=== PATIENT | male | born 1955 | race Caucasian/White ===

== ENCOUNTER → 2016-09-18 11:28 | Outpatient (CLI) | payer MEDICAID ==
[2014-11-28 13:24] VITALS: BMI 29.2
[~2016-09-18 11:28] MED LIST: ADVAIR HFA [SP]12 GM INH; ATIVAN0.5 MG PO; BACTRIM DS TABL1 TAB PO; BAYER CHEWABLE81 MG PO; BUPROPION HCL100 M1 PO; CATAPRES0.1 MG PO; COLACE100 MG PO; COUMADIN10 MG PO; HEALTHYLAX17 GM PO; HYDRALAZINE HCL25 MG PO; HYDRALAZINE HCL50 MG PO; HYDROCHLOROTH12.5 M1 PO; HYDROCODON-ACE1 EAC7 PO; HYDROCODONE-APA1 TAB PO; K-TAB10 MEQ PO; KEFLEX500 MG PO; LASIX40 MG PO; LEVAQUIN500 MG; LEVAQUIN500 MG PO; METOPROLOL TAR100 M1 PO; METOPROLOL TART50 MG PO; MILK OF MAGNESI30 ML GT; NORVASC10 MG PO; NYSTATIN1 PWD TOPICAL; PRAVACHOL40 MG PO; PRINIVIL20 MG PO; PROAIR HFA8.5 GM INH; PROTONIX40 MG PO; PROVENTIL HFA6.7 GM INH
== END | disposition home or self-care (01) ==
LOC: D.CT 11:28
DX: I71.4 Abdominal aortic aneurysm, without rupture (principal)

== ENCOUNTER 2017-01-13 22:16 | Inpatient (IN) | payer MEDICAID ==
[~2017-01-13] VITALS: Ht 193 cm; Wt 116.8 kg
[~2017-01-13 22:16] MED LIST changes: -BUPROPION HCL100 M1 PO; +BUPROPION XL150 MG PO
[2017-01-13 23:18] LABS: BASOPHILS 0.1 % (0-2); EOSINOPHILS 0.4 % (0-7); HEMATOCRIT 52.1 % (42.0-54.0); HEMOGLOBIN 16.3 g/dL (13.5-17.5); IMMATURE GRANULOCYTES 0.3 % (0-5); LYMPHOCYTES 4.3 % (15-50); MCH 29.3 pg (26.0-34.0); MCHC 31.3 g/dL (31.0-37.0); MCV 93.5 fL (80.0-100.0); MEAN PLATELET VOLUME 10.2 fL (7.4-10.4); MONOCYTES 4.7 % (2-11); NEUTROPHILS 90.2 % (40-80); PLATELET COUNT 105 10x3/uL (130-400); RBC 5.57 10x6/uL (4.20-6.10); RDW 12.3 % (11.5-14.5); WBC 11.3 10x3/uL (4.8-10.8)
[2017-01-13 23:28] LABS: ALKALINE PHOSPHATASE 79 U/L (46-116); ALT (SGPT) 19 U/L (10-68); CALC OSMOLALITY 284 mosm/kg (275-300); CALCIUM 8.7 mg/dL (8.5-10.1); CARBON DIOXIDE 37.2 mmol/L (21.0-32.0); CHLORIDE - SERUM 99 mmol/L (98-107); CREATININE - SERUM 1.3 mg/dL (0.6-1.3); GLUCOSE 145 mg/dL (74-106); POTASSIUM - SERUM 3.5 mmol/L (3.5-5.1); PROTEIN - SERUM 7.6 g/dL (6.4-8.2); SODIUM 141 mmol/L (136-145); UREA NITROGEN 14 mg/dL (7-18); eGFR NON AFRICAN AMERICAN 60 mL/min (90-120)
[2017-01-13 23:35] LABS: CREATINE KINASE 70 UL (21-232); PRO BNP 404 pg/mL (0-125); TROPONIN-I < 0.017 ng/mL (0.000-0.060)
[2017-01-14] MEDS ORDERED: PROTONIX40 MG PO (02:01)
[2017-01-14] MEDS ORDERED: HYDROCHLOROTH12.5 M1 PO (02:02)
[2017-01-14] MEDS ORDERED: METOPROLOL TAR100 M1 PO (02:03)
[2017-01-14] MEDS ORDERED: CATAPRES0.1 MG PO (02:03)
[2017-01-14] MEDS ORDERED: PRINIVIL20 MG PO (02:04)
[2017-01-14] MEDS ORDERED: NORVASC10 MG PO (02:05)
[2017-01-14] MEDS ORDERED: ELIQUIS2.5 MG PO (02:05)
[2017-01-14 02:23] VITALS: Ht 193 cm; Wt 116.8 kg
[2017-01-14 04:00] VITALS: BP 171/90
[2017-01-14 08:14] VITALS: BP 166/75
[2017-01-14 12:41] VITALS: BP 142/72
[2017-01-14 15:20] VITALS: BP 136/74
[2017-01-14 20:00] VITALS: BP 123/68
[2017-01-15 04:00] VITALS: BP 134/69
[2017-01-15 04:39] LABS: BASOPHILS 0 % (0-2); EOSINOPHILS 0 % (0-7); HEMATOCRIT 46.6 % (42.0-54.0); HEMOGLOBIN 14.7 g/dL (13.5-17.5); IMMATURE GRANULOCYTES 0.2 % (0-5); LYMPHOCYTES 6.1 % (15-50); MCH 28.7 pg (26.0-34.0); MCHC 31.5 g/dL (31.0-37.0); MEAN PLATELET VOLUME 10.2 fL (7.4-10.4); MONOCYTES 3.2 % (2-11); NEUTROPHILS 90.5 % (40-80); PLATELET COUNT 125 10x3/uL (130-400); RBC 5.13 10x6/uL (4.20-6.10); RDW 12.2 % (11.5-14.5); WBC 12.8 10x3/uL (4.8-10.8)
[2017-01-15 04:46] LABS: MCV 90.8 fL (80.0-100.0)
[2017-01-15 05:00] LABS: ALBUMIN 3.1 g/dL (3.4-5.0); ANION GAP 7.2 mmol/L (8-16); BILIRUBIN - TOTAL 0.86 mg/dL (0.2-1.3); CALCIUM 8.9 mg/dL (8.5-10.1); CARBON DIOXIDE 34.3 mmol/L (21.0-32.0); CREATININE - SERUM 1.4 mg/dL (0.6-1.3); POTASSIUM - SERUM 3.5 mmol/L (3.5-5.1); PROTEIN - SERUM 6.6 g/dL (6.4-8.2)
[2017-01-15 09:51] VITALS: BP 147/64
[2017-01-15 12:59] VITALS: BP 150/81
[2017-01-15 17:02] VITALS: BP 152/82
[2017-01-15 19:00] VITALS: BP 159/71
[2017-01-16 04:00] VITALS: BP 149/71
[2017-01-16 05:00] LABS: BASOPHILS 0 % (0-2); EOSINOPHILS 0 % (0-7); HEMATOCRIT 50.6 % (42.0-54.0); IMMATURE GRANULOCYTES 0.2 % (0-5); LYMPHOCYTES 5.6 % (15-50); MCH 28.9 pg (26.0-34.0); MCHC 31.6 g/dL (31.0-37.0); MCV 91.3 fL (80.0-100.0); MEAN PLATELET VOLUME 10.2 fL (7.4-10.4); MONOCYTES 3.1 % (2-11); NEUTROPHILS 91.1 % (40-80); PLATELET COUNT 140 10x3/uL (130-400); RBC 5.54 10x6/uL (4.20-6.10); RDW 12.4 % (11.5-14.5); WBC 12.7 10x3/uL (4.8-10.8)
[2017-01-16 05:11] LABS: ANION GAP 7.4 mmol/L (8-16); CALCIUM 8.7 mg/dL (8.5-10.1); CARBON DIOXIDE 37.2 mmol/L (21.0-32.0); CREATININE - SERUM 1.1 mg/dL (0.6-1.3); POTASSIUM - SERUM 3.6 mmol/L (3.5-5.1)
[2017-01-16 08:22] LABS: IMMUNOGLOBULIN E 11 IU/mL (0-100)
[2017-01-16 08:32] VITALS: BP 150/76
[2017-01-16 12:30] VITALS: BP 137/74
[2017-01-16 16:02] VITALS: BP 145/75
[2017-01-17] VITALS: BP 151/70
[2017-01-17 04:00] VITALS: BP 172/78
[2017-01-17 08:23] VITALS: BP 147/85
[2017-01-17 13:03] VITALS: BP 133/66
[2017-01-17 17:18] VITALS: BP 148/79
[2017-01-17 20:00] VITALS: BP 154/76
[2017-01-18] VITALS: BP 158/80
[2017-01-18 04:00] VITALS: BP 123/96
[2017-01-18 05:11] LABS: BASOPHILS 0 % (0-2); EOSINOPHILS 0 % (0-7); HEMATOCRIT 50.1 % (42.0-54.0); HEMOGLOBIN 15.8 g/dL (13.5-17.5); IMMATURE GRANULOCYTES 0.3 % (0-5); LYMPHOCYTES 17.4 % (15-50); MCH 28.6 pg (26.0-34.0); MCHC 31.5 g/dL (31.0-37.0); MCV 90.8 fL (80.0-100.0); MONOCYTES 6.7 % (2-11); NEUTROPHILS 75.6 % (40-80); PLATELET COUNT 128 10x3/uL (130-400); RBC 5.52 10x6/uL (4.20-6.10); RDW 12.4 % (11.5-14.5); WBC 9.4 10x3/uL (4.8-10.8)
[2017-01-18 05:23] LABS: ANION GAP 6.7 mmol/L (8-16); CALCIUM 8.6 mg/dL (8.5-10.1); CARBON DIOXIDE 36.2 mmol/L (21.0-32.0); CREATININE - SERUM 1.2 mg/dL (0.6-1.3); MAGNESIUM - SERUM 2.4 mg/dL (1.8-2.4); PHOSPHOROUS 4.2 mg/dL (2.5-4.9); POTASSIUM - SERUM 3.9 mmol/L (3.5-5.1)
[2017-01-18 08:31] VITALS: BP 138/81
[2017-01-18 12:45] VITALS: BP 154/79
[2017-01-18 16:37] VITALS: BP 123/75
[2017-01-18 20:00] VITALS: BP 150/77
[2017-01-19 04:00] VITALS: BP 153/83
[2017-01-19 04:32] LABS: BASOPHILS 0 % (0-2); EOSINOPHILS 0 % (0-7); HEMATOCRIT 48.7 % (42.0-54.0); HEMOGLOBIN 15.4 g/dL (13.5-17.5); IMMATURE GRANULOCYTES 0.4 % (0-5); LYMPHOCYTES 20.5 % (15-50); MCH 28.7 pg (26.0-34.0); MCHC 31.6 g/dL (31.0-37.0); MCV 90.7 fL (80.0-100.0); MEAN PLATELET VOLUME 10.1 fL (7.4-10.4); MONOCYTES 7.7 % (2-11); NEUTROPHILS 71.4 % (40-80); PLATELET COUNT 123 10x3/uL (130-400); RBC 5.37 10x6/uL (4.20-6.10); RDW 12.3 % (11.5-14.5); WBC 7.8 10x3/uL (4.8-10.8)
[2017-01-19 04:46] LABS: ANION GAP 6.4 mmol/L (8-16); CALCIUM 8.2 mg/dL (8.5-10.1); CARBON DIOXIDE 37.4 mmol/L (21.0-32.0); CREATININE - SERUM 1.2 mg/dL (0.6-1.3); POTASSIUM - SERUM 3.8 mmol/L (3.5-5.1)
[2017-01-19] MEDS ORDERED: Levaquin PO (07:51)
[2017-01-19] MEDS ORDERED: NICODERM C1 PATCH .1 TRANSDERM (07:52)
[2017-01-19] MEDS ORDERED: BROVANA15 MCG/2 M INH (07:52)
[2017-01-19] MEDS ORDERED: PREDNISONE20 MG PO (07:54)
[2017-01-19] MEDS ORDERED: SINGULAIR10 MG PO (07:54)
[2017-01-19] MEDS ORDERED: PULMICORT0.5 MG/21 UPD (07:55)
[2017-01-19] MEDS ORDERED: BENZONATATE200 MG PO (07:55)
[2017-01-19 08:39] VITALS: BP 162/88
--- NOTE | 2017-01-20 13:11 | DS ---
PATIENT:MAYELA SOLITARIO JR :57 MEDICAL RECORD: [id number] DISCHARGE SUMMARY ADMISSION DATE: 01/14/17 DISCHARGE DATE: 01/19/17 DATE OF ADMISSION: 01/14/2017 DATE OF DISCHARGE: 01/19/2017 ADMISSION DIAGNOSES: Acute exacerbation of chronic obstructive pulmonary disease, chronic obstructive pulmonary disease, shortness of breath, nicotine dependence, and hypertension. DISCHARGE DIAGNOSES: Acute exacerbation of chronic obstructive pulmonary disease, chronic obstructive pulmonary disease, shortness of breath, nicotine dependence, and hypertension. CONSULTS: Dr. Elizabeth, pulmonology. HOSPITAL COURSE: The patient was admitted to the Emergency Room with worsening shortness of breath, wheezing, supportive O2 was administered, Joshua. Pulmonology consulted. IV corticosteroids, placed on BiPAP. The patient was found to be hypercapnic, significant improvement. The patient is discharged to home in significantly improved condition, home BiPAP has been arranged. blood bank manager to facilitate discharge and sure home medications needs her in place. We will follow up with Dr. Elizabeth, Dr. Desir. The patient is anxious to go home. Counseled on smoking cessation. VITAL SIGNS ON DISCHARGE: Temperature 98.2, blood pressure 153/83, heart rate 55, O2 sats 93% on 3 liters via nasal cannula. The patient has oxygen at home. DISCHARGE MEDICATIONS: Per med rec. Please see chart for further details. Agree with assessments from pulmonology. TRANSINT:[id number] Voice Confirmation ID: [id number] DOCUMENT ID: [id number] CHINEDU BENAVIDES DO at 1311 CC: [id number] DICTATION DATE: 01/19/17 08 BILLET SHEARER: 01/20/17 0455 DIS IN 01/19/17 [facility] [address] [id number]
== END 2017-01-19 12:19 | disposition home health service (06) | DRG 189 ==
LOC: D.ER 22:16 → D.MS 01-14 00:25
PROVIDERS: Emergency Medicine; Family Medicine; Internal Medicine Pulmonary Disease; ADMIT Family Medicine
DX: J96.22 Acute and chronic respiratory failure with hypercapnia (principal); J44.1 Chronic obstructive pulmonary disease with (acute) exacerbation; J45.901 Unspecified asthma with (acute) exacerbation; J20.9 Acute bronchitis, unspecified; J96.21 Acute and chronic respiratory failure with hypoxia; Z72.0 Tobacco use; E78.5 Hyperlipidemia, unspecified; I10 Essential (primary) hypertension; K75.9 Inflammatory liver disease, unspecified; G47.33 Obstructive sleep apnea (adult) (pediatric); G25.1 Drug-induced tremor

== ENCOUNTER → 2017-05-01 14:20 | Outpatient (CLI) | payer MEDICAID ==
[2017-01-14 02:23] VITALS: BMI 31.3
[~2017-05-01 14:20] MED LIST changes: +BENZONATATE200 MG PO; +BROVANA15 MCG/2 M INH; +ELIQUIS2.5 MG PO; +Levaquin PO; +NICODERM C1 PATCH .1 TRANSDERM; +PREDNISONE20 MG PO; +PULMICORT0.5 MG/21 UPD; +SINGULAIR10 MG PO
== END | disposition home or self-care (01) ==
LOC: D.CT 14:20
DX: H53.2 Diplopia (principal)

== ENCOUNTER → 2017-09-04 10:56 | Outpatient (CLI) | payer MEDICAID ==
[2017-01-14 02:23] VITALS: BMI 31.3
== END | disposition home or self-care (01) ==
LOC: D.RT 08-06 08:00
DX: J44.9 Chronic obstructive pulmonary disease, unspecified (principal)

== ENCOUNTER 2018-09-12 09:59 | Outpatient (CLI) | payer MEDICAID ==
[~2018-09-12] VITALS: Ht 193 cm; Wt 112.7 kg
--- NOTE | ~2018-09-12 | HEMODYNAMI ---
PATIENT:MAYELA SOLITARIO JR MEDICAL RECORD: [id number] : 57 LOCATION[facility] ADMISSION DATE: 09/12/18 Generatedon:09/12/201813:51 Patient name: MAYELA SOLITARIO Patient #: [id number] SSN: : Date of study: 09/12/2018 Page: Of Hemodynamic Procedure Report Patient Data Patient Demographics Procedure consent was obtained First Name: MAYELA Gender: Male Last Name: KASSI Suffix: [facility] Initial: CORRIE : 1955 Patient #: [id number] Age: 63 year(s) Race: Unknown Additional ID: [id number] Contact details Address: [address] [place] [address] rd State: [place] City: [place] Zip code: [address] Admission Admission Data Admission Date: 09/12/2018 Admission Time: 9:59 Room #: [facility] Procedure Procedure Types Cath Procedure Diagnostic Procedure KAIYT Procedure Description Procedure Date Procedure Date: 09/12/2018 Procedure Start Time: 13:37 Procedure End Time: 13:49 Procedure Staff Name Function Kaushik Antony MD Performing Physician Austin Horvath Citrus Picker Murphy Gonsales CRNA Additional personnel Rohit Johnson RT Monitor Taj Bryan RN Nurse Procedure Data Cath Procedure Fluoroscopy Diagnostic fluoroscopy Total fluoroscopy Time: 0 time: 0 min min Diagnostic fluoroscopy Total fluoroscopy dose: 0 dose: 0 mGy mGy Contrast Material Contrast Material Type Amount (ml) Isovue 300 0 Estimated blood loss: 0 ml Procedure Complications No complications Procedure Medications Medication Administration Route Dosage Oxygen etCO2 Nasal cannula 2 l/min Hurricaine [place] P.O. Sprays Hemodynamics Rest Pre Cath Intra NCS Post Cath Vital Signs Time Heart Resp SPO2 etCO2 NIBP (mmHg) Rhythm Pain Sedation Rate (ipm) (%) (mmHg) Status Level (bpm) 13:29:11 66 9 98 0 202/98(161) NSR 0 (11) 10(A) , No pain 13:31:47 59 18 96 0 185/94(151) NSR 0 (11) 10(A) , No pain 13:34:02 61 17 99 0 185/110(156) NSR 0 (11) 10(A) , No pain 13:38:45 58 18 98 0 145/86(121) NSR 0 (11) 10(A) , No pain 13:43:07 54 25 94 0 141/74(115) NSR 0 (11) 10(A) , No pain 13:47:29 57 25 94 0 131/72(106) NSR 0 (11) 10(A) , No pain Medications Time Medication Route Dose Verified Delivered Reason Notes Effectiv eness by by 13:21:20 Oxygen etCO2 2 Kaushik Vang Per Nasal l/min St Italo Bryan RN physician cannula MD 13:22:38 Hurricaine P.O. Sprays Kaushik Vang Per [place] St Italo Bryan RN physician MD Procedure Log Time Note 12:50:43 Taj Bryan RN sent for patient. Start room use. 13:08:51 Time tracking: Regular hours (M-F 7:00 - 5:00) 13:08:56 Plan of Care:Hemodynamics will remain stable., Cardiac rhythm will remain stable., Comfort level will be maintained., Respiratory function will remain adequate., Patient/ family verbilizes understanding of procedure., Procedure tolerated without complication., Recovers from procedure without complications.. 13:09:01 Austin Horvath High Reach Operator present for KAITY. 13:09:08 Murphy Gonsales CRNA present and monitoring patient for TIVA. 13:13:50 Patient arrived from Pre/Post Procedure Room to CCL 3. Patient remains on bed/stretcher for procedure. 13:13:51 Warm blankets applied, and petty hugger turned on for patient comfort. 13:13:51 Correct patient and procedure confirmed by team. 13:13:53 Signed procedure consent form obtained from patient. 13:13:53 ECG and BP/O2 sat monitors applied to patient. 13:16:56 Vital chart was started 13:17:04 Rhythm: sinus rhythm 13:17:06 Full Disclosure recording started 13:17:18 H&P Date Dictated: 09/12/2018 New H&P dictated by physician.. 13:17:19 Pre-procedure instructions explained to patient. 13:17:19 Pre-op teaching completed and patient verbalized understanding. 13:17:22 Family in waiting room. 13:17:23 Patient NPO since Midnight. 13:17:24 Is the patient allergic to Iodine/contrast media? No. 13:17:25 Is patient on blood thinner?Yes 13:17:28 ACC The patient was administered the following blood thiners within the last 24 hours: Eliquis 13:17:30 Patient diabetic? No. 13:17:32 Previous problem with sedation/anesthesia? No ? 13:17:33 Snore? Yes 13:17:34 Sleep apnea? No 13:17:35 Deviated septum? No 13:17:35 Opens mouth fully? Yes 13:17:36 Sticks out tongue? Yes 13:17:41 Airway obstruction? Yes COPD 13:17:58 Dentures? No ? 13:18:08 Patient pain scale 0/10 ?. 13:18:46 IV patent on arrival in left forearm with 0.9% NaCl at [facility]. 13:18:48 Lab results completed and on chart. 13:18:54 Alarms reviewed by Christina Lerma 13:19:35 Pt prepped for KAITY. 13:21:20 Oxygen 2 l/min etCO2 Nasal cannula was administered by Taj Bryan RN; Per physician; 13:22:38 Hurricaine [place] Sprays P.O. was administered by Taj Bryan RN; Per physician; 13:36:40 --------ALL STOP TIME OUT------ 13:36:40 Final Timeout: patient, procedure, and site verified with staff and physician. All members of the team are in agreement. 13:36:46 Physical assessment completed. ASA score P 3 - A patient with severe systemic disease as per Kaushik Antony MD. 13:36:50 Sedation plan: TIVA Medication:Propofol 13:37:06 Procedure started. 13:37:08 KAITY started. 13:44:55 KAITY completed. 13:45:12 Procedure ended.(Physican Out) 13:45:57 Fluoroscopy time 00.00 minutes. 13:45:59 Fluoroscopy dose: 0 mGy 13:45:59 Flurop Dose total: 0 13:46:02 Contrast amount:Isovue 300 0ml. 13:46:15 Post Procedure Pulses reassessed and unchanged 13:46:20 Post-procedure physical assessment completed. ASA score P 3 - A patient with severe systemic disease as per Kaushik Antony MD. 13:46:22 Post procedure rhythm: unchanged. 13:46:29 Estimated blood loss: 0 ml 13:47:01 Post procedure instruction explained to patient.Patient verbalizes understanding. 13:47:01 Patient needs reinforcement of post procedure teaching. 13:47:09 Procedure Complication : No complications 13:48:46 Procedure and supply charges have been captured, reviewed, submitted and are correct. 13:49:09 Vital chart was stopped 13:49:10 See physician's report for complete and final results. 13:49:13 Report given to Pre/Post Procedure Room. 13:49:18 Patient transfered to Pre/Post Procedure Room with Stretcher. 13:49:20 Procedure ended. 13:49:20 Full Disclosure recording stopped 13:49:23 End room use (Document Last) Signature Audit [place] Stage Time Signature Unsigned Intra-Procedure 09/12/2018 Rohit Johnson 1:50:56 PM RT(R) Signatures Monitor : Rohit Johnson RT Signature : Date : Time : [place] [id number] [facility] [place] [address]
[~2018-09-12 09:59] MED LIST changes: +CEFUROXIME500 MG PO
[2018-09-12 12:40] VITALS: BP 185/81; Ht 193 cm; Wt 112.7 kg
[2018-09-12 12:50] LABS: BASOPHILS 0.3 % (0-2); EOSINOPHILS 1.7 % (0-7); HEMATOCRIT 44.3 % (42.0-54.0); HEMOGLOBIN 14.7 g/dL (13.5-17.5); IMMATURE GRANULOCYTES 0.3 % (0-5); LYMPHOCYTES 23.8 % (15-50); MCH 27.9 pg (26.0-34.0); MCHC 33.2 g/dL (31.0-37.0); MCV 84.2 fL (80.0-100.0); MEAN PLATELET VOLUME 9.1 fL (7.4-10.4); MONOCYTES 6.2 % (2-11); NEUTROPHILS 67.7 % (40-80); RBC 5.26 10x6/uL (4.20-6.10); RDW 12.7 % (11.5-14.5); WBC 7.1 10x3/uL (4.8-10.8)
[2018-09-12] MEDS ORDERED: FUROSEMIDE40 MG PO (12:53)
[2018-09-12] MEDS ORDERED: ROBAXIN500 MG PO (12:55)
[2018-09-12] MEDS ORDERED: SINGULAIR10 MG PO (12:56)
[2018-09-12] MEDS ORDERED: RESTORIL15 MG PO (12:57)
[2018-09-12 13:00] LABS: PLATELET COUNT 162 10x3/uL (130-400)
[2018-09-12 13:13] LABS: ANION GAP 13.9 mmol/L (8-16); CALCIUM 9.7 mg/dL (8.5-10.1); CREATININE - SERUM 1.3 mg/dL (0.6-1.3); POTASSIUM - SERUM 3.9 mmol/L (3.5-5.1)
[2018-09-12 13:25] LABS: INR 1.09 (0.85-1.17); PROTIME 13.6 SECONDS (11.6-15.0)
--- NOTE | 2018-09-12 14:06 | NUR ---
RECIEVED TO ROOM VIA STRETCHER FROM STATISTICAL PROGRAMMER ANALYST WITH HR 58 BP 145/81 PATIENT RESPONDS TO VERBAL WITH PAIN DENIED. DR VILLAREAL PRESENT AT BEDSIDE TALKING TO FAMILY
--- NOTE | 2018-09-12 14:50 | NUR ---
LEFT PIV D/C'D WITH CATHETER INTACT, BAND AID TO SITE. UP TO BEDSIDE TO GET DRESSED.
--- NOTE | 2018-09-12 15:00 | NUR ---
DISCHARGE INSTRUCTIONS GIVEN, VERBALIZED UNDERSTANDING.
--- NOTE | 2018-09-12 15:05 | NUR ---
TAKEN OUT VIA WHEELCHAIR BY CATH LIFT TEAM TECHNICIAN. LEFT FACILITY WITH FAMILY AND ALL PERSONAL BELONGINGS.
--- NOTE | 2018-09-16 15:26 | TEE ---
PATIENT:MAYELA SOLITARIO JR MEDICAL RECORD: [id number] LOCATION:[facility] AGE OF PATIENT: 63 ADMISSION DATE: 09/12/18 SEX: M REFERRING PHYSICIAN: INTERPRETING PHYSICIAN: EDITH VILLAREAL MD TRANSESOPHAGEAL ECHOCARDIOGRAM Date: 09/12/18 KAITY CHARGE Y INDICATIONS: ASSESS FOR ENDOCARDITIS PREMEDICATIONS: PATIENT'S RESPONSE PROCEDURE DOPPLER MEASUREMENTS: LVIT LA PA RA LVOT RVOT Asc. Ao AV Gradient Peak AV Mean AV Area MV Gradient Peak MV Mean MV Area INTERPRETATION: Doppler: 2-D: COLOR FLOW DOPPLER NORMAL SALINE STUDY: MISCELLANOUS: DIAGNOSIS: PLAN: Nuisance Wildlife Control Operator:3 Dr. Vazquez Is/It Project Manager: Bean ALONZO COMMENTS: DATE OF SERVICE: 09/12/2018 PROCEDURE: Transesophageal echocardiogram. DESCRIPTION OF PROCEDURE: After general sedation via TIVA via anesthesia, transesophageal Omniplane probe was placed at the distal esophagus and proximal stomach without difficulty. FINDINGS: LVH. LV internal dimension is normal. Wall motion is normal. EF is TRANSESOPHAGEAL ECHOCARDIOGRAM REPORT [id number] MAYELA SOLITARIO FRA greater than 55%. Aortic valve is highly sclerotic; however, good valve excursion, mild AI. Left atrium appears normal. Left atrial appendage is well visualized with good contractility. Mitral valve appears normal with no prolapse. Trivial MR. Right-sided chambers grossly normal. Trivial TR. IMPRESSION: Aortic sclerosis only, good valve excursion. No evidence of vegetation. TRANSINT:[id number] Voice Confirmation ID: [id number] DOCUMENT ID: [id number] at 1526 CC: [id number] DICTATION DATE: 09/12/18 1355 SALES REPRESENTATIVE [employer]ODUCTS: 09/12/18 2234 DEP CLI 09/12/[address] [address]
== END 2018-09-12 15:05 | disposition home or self-care (01) ==
LOC: D.ECHO 09:59 → D.CLR 09:59 → D.ECHO 10:00 → D.CLR 12:00 → D.ECHO 15:05
PROVIDERS: Internal Medicine Interventional Cardiology
DX: I38 Endocarditis, valve unspecified (principal)

== ENCOUNTER → 2018-09-26 09:50 | Outpatient (CLI) | payer MEDICAID ==
[2018-09-12 12:40] VITALS: BMI 30.2
[~2018-09-26 09:50] MED LIST changes: +FUROSEMIDE40 MG PO; +RESTORIL15 MG PO; +ROBAXIN500 MG PO
== END | disposition home or self-care (01) ==
LOC: D.CT 09:50
DX: I71.3 Abdominal aortic aneurysm, ruptured (principal)

== ENCOUNTER 2019-06-09 11:36 | Inpatient (IN) | payer MEDICAID ==
[~2019-06-09] VITALS: Ht 193 cm; Wt 113.3 kg
[2019-06-09] VITALS (9 sets, daily range): BP systolic 106–145; BP diastolic 68–103; BMI 31.9
--- NOTE | ~2019-06-09 | HEMODYNAMI ---
PATIENT:MAYELA SOLITARIO JR MEDICAL RECORD: [id number] : 57 [id number] ADMISSION DATE: 06/09/19 Generatedon:06/12/201910:35 Patient name: MAYELA SOLITARIO Patient #: [id number] SSN: : 1955 Date of study: 06/12/2019 Page: Of Hemodynamic Procedure Report Patient Data Patient Demographics Procedure consent was obtained First Name: MAYELA Gender: Male Last Name: KASSI Suffix: [facility] Initial: CORRIE : 1955 Patient #: [id number] Age: 64 year(s) Race: Unknown Additional ID: [id number] Contact details Address: [address] [place] [address] rd State: [place] City: [place] Zip code: [address] Admission Admission Data Admission Date: 06/09/2019 Admission Time: 15:34 Room #: [facility] Procedure Procedure Types Cath Procedure Diagnostic Procedure Cardioversion External Procedure Description Procedure Date Procedure Date: 06/12/2019 Procedure Start Time: 10:17 Procedure End Time: 10:31 Procedure Staff Name Function Kendall Castañeda MD Performing Physician Murphy Gonsales CRNA Additional personnel Luana Lua RN Nurse Rohit Johnson RT Monitor Pauline Scott RT Monitor Procedure Data Cath Procedure Estimated blood loss: 0 ml Procedure Complications No complications Procedure Medications Medication Administration Route Dosage 0.9% NaCl I.V. 100 ml/hr Oxygen etCO2 Nasal cannula 2 l/min Refer to Anesthesia Notes for Sedation Medications Hemodynamics Rest Heart Rate: 90 (bpm) Snapshots Pre Cath Intra NCS Post Cath Vital Signs Time Heart Resp SPO2 etCO2 NIBP (mmHg) Rhythm Pain Sedation Rate (ipm) (%) (mmHg) Status Level (bpm) 10:16:51 99 20 98 16.5 150/108(124) A-Fib 0 (11) 10(A) , No pain 10:21:01 83 15 98 25.6 151/103(112) A-Fib 0 (11) 5(A) , No pain 10:25:50 52 15 97 26.7 96/58(75) SB 0 (11) 5(A) , No pain 10:30:45 51 29 96 30.1 118/63(93) SB 0 (11) 10(A) , No pain Medications Time Medication Route Dose Verified Delivered Reason Notes Effective ness by by 10:16:17 0.9% NaCl I.V. 100 Kendall Luana used for ml/hr Garry Lua private duty aide 10:16:24 Oxygen etCO2 2 Kendall Luana used for Nasal l/min Garry Lua procedure cannula RN 10:16:32 Refer to Murphy Arrington for Anesthesia Dru Gonsales sedation Notes for JIMMIE WIRE SAWYER Sedation Medications Procedure Log Time Note 9:50:53 Rohit Johnson RT(R) sent for patient. Start room use. 10:10:03 Time tracking: Regular hours (M-F 7:00 - 5:00) 10:10:07 Plan of Care:Hemodynamics will remain stable., Cardiac rhythm will remain stable., Comfort level will be maintained., Respiratory function will remain adequate., Patient/ family verbilizes understanding of procedure., Procedure tolerated without complication., Recovers from procedure without complications.. 10:10:11 Patient arrived from PCU to CCL 3. Patient remains on bed/stretcher for procedure. 10:10:14 Signed procedure consent form obtained from patient. 10:10:15 Warm blankets applied, and petty hugger turned on for patient comfort. 10:10:15 Correct patient and procedure confirmed by team. 10:10:15 ECG and BP/O2 sat monitors applied to patient. 10:10:50 Quick Combo opened to sterile field. 10:15:08 Murphy Gonsales CRNA present and monitoring patient for TIVA. 10:15:50 Baseline sample Acquired. 10:15:50 Vital chart was started 10:15:58 Rhythm: atrial fibrillation 10:16:05 Full Disclosure recording started 10:16:17 0.9% NaCl 100 ml/hr I.V. was administered by Luana Lua RN; used for procedure; Verbal order read back and verified. 10:16:24 Oxygen 2 l/min etCO2 Nasal cannula was administered by Luana Lua RN; used for procedure; Verbal order read back and verified. 10:16:32 Refer to Anesthesia Notes for Sedation Medications was administered by Murphy Gonsales CRNA; for sedation; Verbal order read back and verified. 10:16:48 H&P Date Dictated: 06/09/2019 Within 30 days and on chart.. 10:16:49 Pre-procedure instructions explained to patient. 10:16:49 Pre-op teaching completed and patient verbalized understanding. 10:16:51 Family in patients room. 10:16:52 Patient NPO since Midnight. 10:16:54 Is the patient allergic to Iodine/contrast media? No. 10:16:57 Is patient on blood thinner?Yes 10:17:00 ACC The patient was administered the following blood thiners within the last 24 hours: Eliquis 10:17:03 Patient diabetic? No. 10:17:05 Previous problem with sedation/anesthesia? No ? 10:17:06 Snore? Yes 10:17:08 Sleep apnea? Yes 10:17:08 Deviated septum? No 10:17:10 Opens mouth fully? Yes 10:17:11 Sticks out tongue? Yes 10:17:12 Airway obstruction? No ? 10:17:14 Dentures? No ? 10:17:20 Patient pain scale 0/10 ?. 10:17:45 IV patent on arrival in left forearm with 0.9% NaCl at [facility]. 10:17:47 Lab results completed and on chart. 10:17:50 Alarms reviewed by Christina Lerma 10:18:07 Quick combo pads placed on patients chest and back. 10:22:02 --------ALL STOP TIME OUT------ 10:22:03 Final Timeout: patient, procedure, and site verified with staff and physician. All members of the team are in agreement. 10:22:09 Fire Safety Assessment: E--There are other possible contributors. 10:22:17 Physical assessment completed. ASA score P 3 - A patient with severe systemic disease as per Kendall Castañeda MD. 10:22:22 Sedation plan: TIVA Medication:Propofol 10:25:03 Defibrillator synced and charged to 275 Joules. 10:25:07 Shock delivered. 10:25:11 Patient cardioverted to sinus bradycardia. 10:25:17 Procedure ended.(Physican Out) 10:29:54 Post-procedure physical assessment completed. ASA score P 3 - A patient with severe systemic disease as per Kendall Castañeda MD. 10:30:00 Post procedure rhythm: sinus bradycardia 10:30:04 Estimated blood loss: 0 ml 10:30:05 Post procedure instruction explained to patient.Patient verbalizes understanding. 10:30:05 Patient needs reinforcement of post procedure teaching. 10:30:11 Procedure type changed to Cath procedure, Diagnostic procedure, Cardioversion External 10:30:22 Procedure and supply charges have been captured, reviewed, submitted and are correct. 10:30:24 Procedure Complication : No complications 10:30:57 Vital chart was stopped 10:31:01 Operative report dictated upon procedure completion. 10:31:01 See physician's report for complete and final results. 10:31:06 Report given to PCU. 10:31:09 Patient transfered to [facility] with Bed. 10:31:11 Procedure ended. 10:31:11 Full Disclosure recording stopped 10:31:15 End room use (Document Last) 10:34:39 Tatiana Cordova RT(R) was relieved by Luana Lua RN as monitoring person Device Usage Item Manufacture Quantity Catalog Hospital Part Current Minimal Lot# / Name Number Charge Number Stock Stock Seri al# Code [employer]park 1 [id number] Combo Signature Audit [place] Stage Time Signature Unsigned Intra-Procedure 06/12/2019 Pauline Scott 10:34:09 AM RT(R) Intra-Procedure 06/12/2019 Kendall Castañeda MD 10:35:09 AM [facility] [address] [place] [address]
[2019-06-09] MEDS ORDERED: LANOXIN125 MCG PO (11:48)
[2019-06-09 12:13] LABS: BASOPHILS 0.3 % (0-2); EOSINOPHILS 1.2 % (0-7); HEMATOCRIT 48.5 % (42.0-54.0); HEMOGLOBIN 15.6 g/dL (13.5-17.5); IMMATURE GRANULOCYTES 0.3 % (0-5); LYMPHOCYTES 23.3 % (15-50); MCH 28.7 pg (26.0-34.0); MCHC 32.2 g/dL (31.0-37.0); MCV 89.2 fL (80.0-100.0); MEAN PLATELET VOLUME 9.1 fL (7.4-10.4); MONOCYTES 6.3 % (2-11); NEUTROPHILS 68.6 % (40-80); PLATELET COUNT 138 10x3/uL (130-400); RBC 5.44 10x6/uL (4.20-6.10); RDW 13.2 % (11.5-14.5); WBC 7.7 10x3/uL (4.8-10.8)
[2019-06-09 12:30] LABS: ALBUMIN 4.3 g/dL (3.4-5.0); ALKALINE PHOSPHATASE 87 U/L (46-116); ALT (SGPT) 22 U/L (10-68); CALC OSMOLALITY 287 mosm/kg (275-300); CALCIUM 9.1 mg/dL (8.5-10.1); CARBON DIOXIDE 31.2 mmol/L (21.0-32.0); CHLORIDE - SERUM 104 mmol/L (98-107); CREATININE - SERUM 1.3 mg/dL (0.6-1.3); GLUCOSE 133 mg/dL (74-106); POTASSIUM - SERUM 3.8 mmol/L (3.5-5.1); PROTEIN - SERUM 7.9 g/dL (6.4-8.2); SODIUM 144 mmol/L (136-145); UREA NITROGEN 11 mg/dL (7-18); eGFR NON AFRICAN AMERICAN 59 mL/min (90-120)
[2019-06-09] MEDS ORDERED: SKELAXIN800 MG PO (12:33)
[2019-06-09] MEDS ORDERED: INFANT'S M50 MG/1.25 PO (12:33)
[2019-06-09] MEDS ORDERED: VOLTAREN100 GM TOPICAL (12:33)
[2019-06-09 12:36] LABS: CKMB 1.7 U/L (0.0-3.6); CREATINE KINASE 91 UL (21-232); DIGOXIN 0.48 ng/mL (0.90-2.00); TROPONIN-I < 0.017 ng/mL (0.000-0.060)
--- NOTE | 2019-06-09 13:24 | NUR ---
ASSUMED CARE OF PT. PT AMB TO ER #6. PLACED ON CM (A-FIB @ 122*134 BPM).
--- NOTE | 2019-06-09 15:41 | NUR ---
REPORT CALLED TO CORTNEY PIZANO BY SBAR FORMAT
--- NOTE | 2019-06-09 15:57 | MORECARE ---
CASE MANAGEMENT DISCHARGE SUMMARY PATIENT: MAYELA SOLITARIO JR UNIT: [id number] ADM DATE: 06/09/19 AGE: 64 : 57 SEX: M ROOM/BED: D.2121 AUTHOR: DALIA RING PHYSICIAN: REFERRING PHYSICIAN: AAKASH LIRIANO MD DATE OF SERVICE: 06/09/19 Discharge Plan Patient Name: MAYELA SOLITARIO Facility: [facility]:[place] : 1955 Planned Disposition: Home Anticipated Discharge Date: 06/11/19 Discharge Date: Expected LOS: 2 Initial Reviewer: [email or web address] Initial Review Date: 06/09/2019 Generated: 06/09/19 4:56 pm Patient Name: MAYELA SOLITARIO Page [id number] at 1557 All edits/amendments must be made on the electronic document DICTATION DATE: 06/09/191555 WATER PROOFER: SARIAH 06/09/191555 RPT#: [id number] DC DATE: STATUS: ADM IN [facility] [address] [place] [address] END OF REPORT
--- NOTE | 2019-06-09 16:05 | NUR ---
TXD TO ROOM # 2261 WITH NURSE. CONDITION STABLE. CARDIZEM DRIP INFUSING UPON TX TO FLOOR
--- NOTE | 2019-06-09 16:26 | NUR ---
ARRIVE TO UNIT VIA WHEELCHAIR FROM ER. ALERT AND ORIENTED X4. AMBULATES TO BED. GAIT STEADY. RT AC IV INFUSING CARDIZEM ORDERED AT 15ml/HR. 130 UNCONTROLLED AFIB ON TELEMETRY. RECIEVED LOVENOX INJ IN ER. NO SCDs. TAKES ELIQUIS AT HOME. DENIES SOB OR PAIN. CONTINUE ADMISSION PROCESS AND SAFETY PRECAUTIONS.
--- NOTE | 2019-06-09 16:29 | MORECARE ---
CASE MANAGEMENT DISCHARGE SUMMARY PATIENT: MAYELA SOLITARIO JR UNIT: [id number] ADM DATE: 06/09/19 AGE: 64 : 57 SEX: M ROOM/BED: D.1306 AUTHOR: DALIA RING PHYSICIAN: REFERRING PHYSICIAN: AAKASH LIRIANO MD DATE OF SERVICE: 06/09/19 Discharge Plan Patient Name: MAYELA SOLITARIO Facility: [facility]:[place] : 1955 Planned Disposition: Home Anticipated Discharge Date: 06/11/19 Discharge Date: Expected LOS: 2 Initial Reviewer: [email or web address] Initial Review Date: 06/09/2019 Generated: 06/09/19 5:29 pm DCP- Discharge Planning Updated by [email or web address]: Lisa Collado on 06/09/19 3:[address] DC PLAN: Return home with his spouse. ANTICIPATED DC NEEDS: Denied needs at time of assessment. CM met with patient to complete initial dc planning assessment. CM educated patient on the CM role and verbal consent given by patient to complete assessment. CM verified patient's address, phone number, and emergency contact phone numbers. Patient lives at home with his . He reports he is independent in his care and he cares for his . At discharge patient plans to return home and feels this is a safe discharge. CM discussed availability of home health, rehab services, and medical equipment. Patient denied known discharge needs at this time. Transportation provider at discharge will be himself or his son. His truck is in the parking lot. CM informed him he would need to make sure he was ok to drive when he is discharged with his md. CM will continue to follow and will assist as needed with dc plans/needs. Lisa Collado RN, [facility] DCPIA - Discharge Planning Initial Assessment Updated by [email or web address]: Lisa Collado on 06/09/19 4:20 pm * Is the patient Alert and Oriented? Yes * PCP Dr. Desir * [facility] [address] * Preadmission Environment Home with Family * ADLs Independent * Equipment Cane Rolling Walker Wheelchair * List name and contact numbers for known caregivers / representatives who currently or will assist patient after discharge: Zen Solitario - son - [phone] Melissa Solitario - - [phone] * Verbal permission to speak to the caregivers and representatives has been obtained from the patient. Yes * Community resources currently utilized None * Additional services required to return to the preadmission environment? No * Can the patient safely return to the preadmission environment? Yes * Has this patient been hospitalized within the prior 30 days at any hospital? No Last DP export: 06/09/19 2:57 Patient Name: MAYELA SOLITARIO Page [phone] at 1629 All edits/amendments must be made on the electronic document DICTATION DATE: 06/09/191628 MEDICAL OFFICE ASSISTANT INSTRUCTOR: SARIAH 06/09/191628 RPT#: [id number] [place] DATE: STATUS: ADM IN [facility] [address] [place] [address] END OF REPORT
[2019-06-09] MEDS ORDERED: HYDRALAZINE HCL25 MG PO (16:38)
[2019-06-09] MEDS ORDERED: K-TAB10 MEQ PO (16:44)
--- NOTE | 2019-06-09 16:58 | NUR ---
ADMINISTER 0.1mg DIGOXIN LESS DOSE THAN ORDERED DUE TO CARDIZEM DRIP. HR-130 UNCONTROLLED AFIB AND BP-130/92. ADMINISTERED SLOWLY PER PROTOCOL. ENDING HR-122 UNCONTROLLED AFIB. BP-129/84. CONTINUE TO MONITOR.
--- NOTE | 2019-06-09 17:32 | NUR ---
CARDIZEM DRIP STOPPED. HR DROP FROM 112 UNCONTOLLED AFIB TO 83 CONTROLLED AFIB WITH [address]BOWEN NARAYANAN.
[2019-06-09 18:10] LABS: APTT 32.8 SECONDS (22.8-39.4); INR 1.08 (0.85-1.17); PROTIME 13.5 SECONDS (11.6-15.0)
[2019-06-09 18:11] LABS: D-DIMER-QUANTITATIVE 3.04 ug/mLFEU (0.20-0.54)
--- NOTE | 2019-06-09 19:12 | NUR ---
ALERT AND ORIENTED X4. SITTING UP IN BED. IBRAHIM CALLS BACK. CARDIZEM DRIP ORDERED TO INFUSE AT 5mL/HR IF HR OVER 110 UNCONTROLLED AFIB. IF BELOW 110bpm DRIP TO BE STOPPED DUE TO 2 SEC PAUSES. AYSMPTOMATIC DURING PAUSES. DENIES SOB OR PAIN.
--- NOTE | 2019-06-09 19:20 | NUR ---
ASSESSMENT COMPLETE, PT A&O. RESPERATIONS EVEN ON RA. IV TO RIGHT UPPER ARM SL, SITE CLEAN AND DRY. PT CURRENTLY DENIES PAIN OR NEEDS, BED LOW, CL IN REACH.
--- NOTE | 2019-06-09 20:43 | NUR ---
PT AMBULTAING IN GATES, GAIT STEADY.
[2019-06-10] VITALS: BP 103/54
--- NOTE | 2019-06-10 00:25 | NUR ---
RESTING WITH EYES CLOSED, RESPERATIONS EVEN, NO S/S DISTRESS NOTED. HR 98 CONTROLLED A FIB.
[2019-06-10 04:00] VITALS: BP 132/83
--- NOTE | 2019-06-10 04:29 | NUR ---
JUNIOR MANUFACTURING ENGINEER AT BED SIDE TO OBTAIN VITALS. HR 90, CONTROLLED A FIB ON TELEMETRY.
--- NOTE | 2019-06-10 05:23 | NUR ---
PTS HR 136 ON TELEMETRY, ENTERED ROOM TO CHECK ON PT, PT UP AMBULATING IN ROOM, HAD JUST GONE TO THE REST ROOM AND NOW PUTTING BACK ON HIS STREET CLOTHES. GAVE PT CUP OF COFFEE PER HIS REQUEST. PT NOW SITTING ON EDGE OF BED, HR BACK TO 98-105.
[2019-06-10 05:47] LABS: BASOPHILS 0.2 % (0-2); EOSINOPHILS 1.6 % (0-7); HEMATOCRIT 43.7 % (42.0-54.0); IMMATURE GRANULOCYTES 0.3 % (0-5); LYMPHOCYTES 30.4 % (15-50); MCH 28.3 pg (26.0-34.0); MCV 88.3 fL (80.0-100.0); MEAN PLATELET VOLUME 9.2 fL (7.4-10.4); MONOCYTES 7.3 % (2-11); NEUTROPHILS 60.2 % (40-80); PLATELET COUNT 138 10x3/uL (130-400); RBC 4.95 10x6/uL (4.20-6.10); RDW 13.1 % (11.5-14.5); WBC 6.3 10x3/uL (4.8-10.8)
[2019-06-10 06:09] LABS: ALBUMIN 3.6 g/dL (3.4-5.0); BILIRUBIN - TOTAL 1.34 mg/dL (0.2-1.3); CALCIUM 8.5 mg/dL (8.5-10.1); CARBON DIOXIDE 30.4 mmol/L (21.0-32.0); CREATININE - SERUM 1.3 mg/dL (0.6-1.3); PROTEIN - SERUM 6.7 g/dL (6.4-8.2)
[2019-06-10 06:11] LABS: ANION GAP 10.8 mmol/L (8-16); POTASSIUM - SERUM 3.2 mmol/L (3.5-5.1)
--- NOTE | 2019-06-10 07:30 | NUR ---
RECIEVED REPORT. ALERT AND ORIENTED X4. SITTING UP IN CHAIR. UNCONTROLLED AFIB 103 ON TELEMETRY. DENIES SOB OR PAIN. RESPIRATIONS EVEN AND REGULAR. CARDIZEM DRIP REMAINS ON HOLD. DENIES ANY NEEDS AT THIS TIME. URINAL PROVIDED FOR UA COLLECTION. CONTINUE PLAN OF CARE AND SAFETY PRECAUTIONS.
[2019-06-10 09:29] VITALS: BP 144/82
--- NOTE | 2019-06-10 10:46 | NUR ---
ALERT AND ORIENTED X4. SITTING UP ON SIDE OF BED. CARDIZEM DRIP INFUSING @ 5ml/HR ORDERED. UNCONTROLLED AFIB 108 WITH 1.2SEC PAUSES HR DROP TO CONTROLLED AFIB 80. PEG LOSS PREVENTION LEAD STATES, "IT LOOKS LIKE HE IS TRYING TO GO INTO AFLUTTER." CONTINUE TO MONITOR. ASYMPTOMATIC. DENIES PAIN OR SOB. CONTINUE PLAN OF CARE AND SAFETY PRECAUTIONS.
[2019-06-10 12:13] VITALS: BP 122/74
[2019-06-10 14:05] VITALS: Ht 193 cm; Wt 113.3 kg
[2019-06-10 16:46] VITALS: BP 141/85
--- NOTE | 2019-06-10 18:17 | NUR ---
ALERT AND ORIENTED X4. SITTING UP IN CHAIR. FAMILY AT BEDSIDE. UNCONTROLLED AFIB 113 ON TELEMETRY. CARDIZEM DRIP INFUSING @ 5mL/HR ORDERED. DENIES PAIN OR SOB. DENIES ANY NEEDS AT THIS TIME. CONTINUE PLAN OF CARE AND SAFETY PRECAUTIONS.
[2019-06-10 18:30] LABS: APPEARANCE CLEAR (CLEAR); BILIRUBIN NEGATIVE (NEGATIVE); COLOR YELLOW (YELLOW); GLUCOSE NEGATIVE (NEGATIVE); KETONE NEGATIVE (NEGATIVE); NITRITE NEGATIVE (NEGATIVE); PROTEIN NEGATIVE (NEGATIVE); UROBILINOGEN NORMAL (NORMAL)
--- NOTE | 2019-06-10 19:40 | NUR ---
ASSESSMENT COMPLETE, PT A&O. RESPERATIONS EVEN ON RA. IV TO RIGHT AC WITH CARDIZEM DRIP AT 5 CC/HR. 114 UNCONTROLLED AFIB ON TELEMETRY. PT CURRENTLY DENIES PAIN OR NEEDS, BED LOW, CL IN REACH.
[2019-06-10 20:35] VITALS: BP 175/95
--- NOTE | 2019-06-10 21:19 | NUR ---
HS MEDS GIVEN WITH FRESH ICE WATER. PT DENIES PAIN OR NEEDS.
[2019-06-11] VITALS: BP 135/74
--- NOTE | 2019-06-11 01:23 | NUR ---
RESTING WITH EYES CLOSED, RESPERATOINS EVEN, NO S/S DISTRESS NOTED.
[2019-06-11 04:00] VITALS: BP 130/78
[2019-06-11 06:10] LABS: BASOPHILS 0.3 % (0-2); EOSINOPHILS 1.1 % (0-7); HEMATOCRIT 44.2 % (42.0-54.0); HEMOGLOBIN 14.5 g/dL (13.5-17.5); IMMATURE GRANULOCYTES 0.1 % (0-5); MCH 28.8 pg (26.0-34.0); MCHC 32.8 g/dL (31.0-37.0); MCV 87.9 fL (80.0-100.0); MEAN PLATELET VOLUME 9.7 fL (7.4-10.4); NEUTROPHILS 62.5 % (40-80); PLATELET COUNT 141 10x3/uL (130-400); RBC 5.03 10x6/uL (4.20-6.10); RDW 13.1 % (11.5-14.5); WBC 7.3 10x3/uL (4.8-10.8)
[2019-06-11 06:33] LABS: ALBUMIN 3.6 g/dL (3.4-5.0); ANION GAP 11.5 mmol/L (8-16); BILIRUBIN - TOTAL 1.39 mg/dL (0.2-1.3); CALCIUM 8.8 mg/dL (8.5-10.1); CARBON DIOXIDE 28.8 mmol/L (21.0-32.0); CREATININE - SERUM 1.2 mg/dL (0.6-1.3); POTASSIUM - SERUM 3.3 mmol/L (3.5-5.1); PROTEIN - SERUM 6.7 g/dL (6.4-8.2)
--- NOTE | 2019-06-11 08:05 | NUR ---
ASSESSMENT DONE. DENIES NEEDS
[2019-06-11 09:06] VITALS: BP 135/92
[2019-06-11 09:16] LABS: MAGNESIUM - SERUM 1.9 mg/dL (1.8-2.4); T4 THYROXIN - FREE 1.33 ng/dL (0.76-1.46); THYROID STIMULATING HORMONE 0.56 uIU/mL (0.36-3.74)
--- NOTE | 2019-06-11 10:44 | NUR ---
I have reviewed this patient and I concur with the Shift Assessment completed by the Licensed Practical Nurse today this shift.
[2019-06-11 12:04] VITALS: BP 124/75
--- NOTE | 2019-06-11 17:56 | NUR ---
WITHOUT CHANGES OR DISTRESS NOTED AT THIS TIME. DENIES NEEDS
--- NOTE | 2019-06-11 19:40 | NUR ---
ASSESSMENT COMPLETE, PT A&O. RESPERATIONS EVEN ON RA. IV TO LEFT HAND WITH CARDIZEM DRIP INFUSING AT 5 CC/HR. IV SITE CLEAN AND DRY. REMINDED PT OF NOTHING TO EAT TO DRINK AFTER MN FOR CARDIOVERSION, PT STATED UNDERSTANDING.
[2019-06-11 20:00] VITALS: BP 150/93
[2019-06-12] VITALS: BP 142/83
--- NOTE | 2019-06-12 00:42 | NUR ---
RESTING WITH EYES CLOSED, RESPERATIONS EVEN, NO S/S DISTRESS NOTED.
[2019-06-12 04:00] VITALS: BP 149/89
[2019-06-12 06:10] LABS: BASOPHILS 0.1 % (0-2); EOSINOPHILS 1.5 % (0-7); HEMOGLOBIN 14.5 g/dL (13.5-17.5); IMMATURE GRANULOCYTES 0.1 % (0-5); LYMPHOCYTES 23.8 % (15-50); MCH 28.7 pg (26.0-34.0); MCHC 32.2 g/dL (31.0-37.0); MCV 89.1 fL (80.0-100.0); MEAN PLATELET VOLUME 9.5 fL (7.4-10.4); MONOCYTES 6.5 % (2-11); PLATELET COUNT 150 10x3/uL (130-400); RBC 5.05 10x6/uL (4.20-6.10); RDW 13.2 % (11.5-14.5); WBC 7.8 10x3/uL (4.8-10.8)
[2019-06-12 06:41] LABS: ALBUMIN 3.4 g/dL (3.4-5.0); ANION GAP 11.7 mmol/L (8-16); BILIRUBIN - TOTAL 1.18 mg/dL (0.2-1.3); CALCIUM 8.4 mg/dL (8.5-10.1); CARBON DIOXIDE 29.2 mmol/L (21.0-32.0); CREATININE - SERUM 1.2 mg/dL (0.6-1.3); POTASSIUM - SERUM 3.9 mmol/L (3.5-5.1); PROTEIN - SERUM 6.7 g/dL (6.4-8.2)
--- NOTE | 2019-06-12 07:10 | NUR ---
ASSESSMENT DONE. DENIES NEEDS
--- NOTE | 2019-06-12 10:12 | NUR ---
I have reviewed this patient and I concur with the Shift Assessment completed by the Licensed Practical Nurse today this shift.
--- NOTE | 2019-06-12 10:18 | NUR ---
TO [employer] SPECIAL EDUCATION TEACHER PER BED
[2019-06-12 10:44] VITALS: BP 169/109
[2019-06-12 13:42] VITALS: BP 147/77
[2019-06-12] MEDS ORDERED: BETAPACE 120 M120 MG PO (14:07)
--- NOTE | 2019-06-12 15:54 | NUR ---
PATIENT STATES HE WANTS TO FOLLOW UP WITH PRIMARY FOR HIGH DOSE FLU SHOT.
--- NOTE | 2019-06-12 16:18 | NUR ---
DC GIVEN TO PT
--- NOTE | 2019-06-12 17:27 | NUR ---
DC HOME PER PERSONAL CAR
--- NOTE | 2019-06-13 07:05 | MORECARE ---
CASE MANAGEMENT DISCHARGE SUMMARY PATIENT: MAYELA SOLITARIO JR UNIT: [id number] ADM DATE: 06/09/19 AGE: 64 : 57 SEX: M ROOM/BED: D.5215 AUTHOR: DALIA RING PHYSICIAN: REFERRING PHYSICIAN: AAKASH LIRIANO MD DATE OF SERVICE: 06/13/19 Discharge Plan Patient Name: MAYELA SOLITARIO Facility: [facility]:[place] : 1955 Planned Disposition: Home Anticipated Discharge Date: 06/12/19 Discharge Date: 06/12/2019 Expected LOS: 3 Initial Reviewer: [email or web address] Initial Review Date: 06/09/2019 Generated: 06/13/19 8:05 am DCP- Discharge Planning Updated by [email or web address]: Lisa Collado on 06/09/19 3:[address] DC PLAN: Return home with his spouse. ANTICIPATED DC NEEDS: Denied needs at time of assessment. CM met with patient to complete initial dc planning assessment. CM educated patient on the CM role and verbal consent given by patient to complete assessment. CM verified patient's address, phone number, and emergency contact phone numbers. Patient lives at home with his . He reports he is independent in his care and he cares for his . At discharge patient plans to return home and feels this is a safe discharge. CM discussed availability of home health, rehab services, and medical equipment. Patient denied known discharge needs at this time. Transportation provider at discharge will be himself or his son. His truck is in the parking lot. CM informed him he would need to make sure he was ok to drive when he is discharged with his md. CM will continue to follow and will assist as needed with dc plans/needs. Lisa Collado RN, [facility] DCPIA - Discharge Planning Initial Assessment Updated by [email or web address]: Lisa Collado on 06/09/19 4:20 pm * Is the patient Alert and Oriented? Yes * PCP Dr. Desir * Pharmacy [facility] [address] * Preadmission Environment Home with Family * ADLs Independent * Equipment Cane Rolling Walker Wheelchair * List name and contact numbers for known caregivers / representatives who currently or will assist patient after discharge: Zen Solitario - son - [phone] Melissa Solitario - - [phone] * Verbal permission to speak to the caregivers and representatives has been obtained from the patient. Yes * Community resources currently utilized None * Additional services required to return to the preadmission environment? No * Can the patient safely return to the preadmission environment? Yes * Has this patient been hospitalized within the prior 30 days at any hospital? No Last DP export: 06/09/19 3:29 Patient Name: MAYELA SOLITARIO Page [id number] at 0705 All edits/amendments must be made on the electronic document DICTATION DATE: 06/13/19704 METAL RECLAMATION KETTLE TENDER: SARIAH 06/13/19704 RPT#: [id number] DC DATE:06/12/19 STATUS: DIS IN [facility] [address] [place] [address] END OF REPORT
--- NOTE | 2019-06-13 13:28 | EC ---
PATIENT:MAYELA SOLITARIO JR DATE OF SERVICE: 06/09/19 SEX: M MEDICAL RECORD: [id number] DATE OF : [birth year] LOCATION:D.M2 D.212 AGE OF PATIENT: 64 ADMISSION DATE: 06/09/19 REFERRING PHYSICIAN: INTERPRETING PHYSICIAN: HANNAH SEPULVEDA MD ECHOCARDIOGRAM REPORT ECHO CHARGES 4 ECHO COMPLETE Date: 06/10/19 CLINICAL DIAGNOSIS: AFIB ECHOCARDIOGRAPHIC MEASUREMENTS (adult normal given) AC root (d.<3.7cm) 3.7 cm LV Septum d (<1.2 cm> 1.1 cm Valve Excursion 1.3 cm LV Septum (systole) 1.2 cm Left Atria (s.<4.0cm> 4.8 cm LVPW d(<1.2cm) 1.2 cm RV (d.<2.3cm) 4.3 cm LVPW (sytole) 1.7 cm LV diastole(<5.6CM) 6.5 cm MV E-F(>70mm/sec) cm LV systole 5.5 cm LVOT Diameter 2.1 cm MV exc.(>10mm) 1.5 cm Est.ejection fraction (50-75%) % DOPPLER: LVIT cm/sec A cm/sec E 90.0 cm/sec LA cm/sec RVSP 23 mmHg LVOT 78 cm/sec AOP1/2T m/s Asc. Ao 103 cm/sec RVOT 78 cm/sec RA cm/sec PA 99 cm/sec AV Gradient Peak 4.27 mmHg AV Mean 2.25 mmHg AV Area 3.1 cm MV Gradient Peak 5.69 mmHg MV Mean 2.20 mmHg MV Area cm COMMENTS: Electronic Organ Mechanic: Bean ALONZO Head Of Product: 1 Dr. Sepulveda TAPE# PACS Pericardial Effusion N DATE OF SERVICE: PROCEDURE: Echocardiogram. FINDINGS: 1. Left ventricular chamber size is mildly dilated. Left ventricular systolic function is preserved at 50% to 55%. 2. Left atrium is enlarged at 4.8 cm. Right atrium and right ventricular chamber sizes are as well mildly dilated. 3. Valvular structures have normal structure and motion. ECHOCARDIOGRAM REPORT [id number] MAYELA SOLITARIO JR 4. Doppler interrogation reveals only trace tricuspid regurgitation, no other valvular insufficiency or stenosis. Pulmonary systolic pressure is normal estimated at 23 mmHg. 5. No evidence of pericardial effusion or left ventricular thrombus. TRANSINT:[id number] Voice Confirmation ID: [id number] DOCUMENT ID: [id number] HANNAH SEPULVEDA MD at 1328 CC: [id number] DICTATION DATE: 06/10/19 1241 UNIFORM DESIGNER: 06/10/19 1252 DIS IN 06/12/19 [facility] [address] [place] [id number]
== END 2019-06-12 17:27 | disposition home or self-care (01) | DRG 310 ==
LOC: D.ER 11:36 → D.M2 15:01 → OBSVTIME 15:11 → D.M2 15:34
PROVIDERS: Emergency Medicine; Internal Medicine Cardiovascular Disease; ADMIT Family Medicine; ATTEND Family Medicine
DX: I48.0 Paroxysmal atrial fibrillation (principal); I25.10 Atherosclerotic heart disease of native coronary artery without angina pectoris; Z87.891 Personal history of nicotine dependence; E78.5 Hyperlipidemia, unspecified; G89.29 Other chronic pain; M54.9 Dorsalgia, unspecified

== ENCOUNTER 2020-01-12 16:48 | Inpatient (IN) | payer MEDICAID ==
[~2020-01-12] VITALS: Ht 193 cm; Wt 106.6 kg
[~2020-01-12 16:48] MED LIST changes: +BETAPACE 120 M120 MG PO; +INFANT'S M50 MG/1.25 PO; +LANOXIN125 MCG PO; +SKELAXIN800 MG PO; +VOLTAREN100 GM TOPICAL
[2020-01-12 18:26] LABS: BASOPHILS 0.2 % (0-2); EOSINOPHILS 0.3 % (0-7); HEMATOCRIT 46.8 % (42.0-54.0); HEMOGLOBIN 14.6 g/dL (13.5-17.5); IMMATURE GRANULOCYTES 0.1 % (0-5); LYMPHOCYTES 16.8 % (15-50); MCH 26.8 pg (26.0-34.0); MCHC 31.2 g/dL (31.0-37.0); MCV 85.9 fL (80.0-100.0); MEAN PLATELET VOLUME 9.1 fL (7.4-10.4); MONOCYTES 9.7 % (2-11); NEUTROPHILS 72.9 % (40-80); RBC 5.45 10x6/uL (4.20-6.10); WBC 9.1 10x3/uL (4.8-10.8)
[2020-01-12 18:32] LABS: PLATELET COUNT 188 10x3/uL (130-400)
[2020-01-12 18:41] LABS: CALC OSMOLALITY 272 mosm/kg (275-300); CALCIUM 9.3 mg/dL (8.5-10.1); CHLORIDE - SERUM 95 mmol/L (98-107); CREATININE - SERUM 1.7 mg/dL (0.6-1.3); GLUCOSE 126 mg/dL (74-106); POTASSIUM - SERUM 3.3 mmol/L (3.5-5.1); SODIUM 132 mmol/L (136-145); UREA NITROGEN 30 mg/dL (7-18); eGFR NON AFRICAN AMERICAN 43 mL/min (90-120)
[2020-01-12 18:56] LABS: ALBUMIN 3.7 g/dL (3.4-5.0); ALKALINE PHOSPHATASE 87 U/L (30-120); ALT (SGPT) 18 U/L (10-68); CKMB 0.5 U/L (0.0-3.6); CREATINE KINASE 61 UL (21-232); PROTEIN - SERUM 8.4 g/dL (6.4-8.2); TROPONIN-I < 0.017 ng/mL (0.000-0.060)
[2020-01-12 19:30] LABS: BILIRUBIN NEGATIVE (NEGATIVE); GLUCOSE NEGATIVE (NEGATIVE); KETONE NEGATIVE (NEGATIVE); NITRITE NEGATIVE (NEGATIVE); SPECIFIC GRAVITY 1.015 (1.005-1.020); UROBILINOGEN NORMAL (NORMAL)
[2020-01-12 20:51] VITALS: BP 145/64
--- NOTE | 2020-01-12 21:40 | NUR ---
TO ROOM VIA WC FROM ER BED LOW AND LOCKED PT IMEDIATLY AMBLITORY TO REST ROOM
[2020-01-13 00:26] VITALS: BP 153/83; Ht 193 cm; Wt 106.6 kg
[2020-01-13 04:00] VITALS: BP 139/79
[2020-01-13 06:48] LABS: BASOPHILS 0 % (0-2); EOSINOPHILS 0 % (0-7); HEMATOCRIT 43.2 % (42.0-54.0); HEMOGLOBIN 13.4 g/dL (13.5-17.5); IMMATURE GRANULOCYTES 0.2 % (0-5); LYMPHOCYTES 10.5 % (15-50); MCH 26.5 pg (26.0-34.0); MCV 85.5 fL (80.0-100.0); MEAN PLATELET VOLUME 8.8 fL (7.4-10.4); MONOCYTES 1.1 % (2-11); NEUTROPHILS 88.2 % (40-80); PLATELET COUNT 193 10x3/uL (130-400); RBC 5.05 10x6/uL (4.20-6.10); RDW 12.8 % (11.5-14.5)
[2020-01-13 07:01] LABS: APTT 43.9 SECONDS (22.8-39.4); INR 1.22 (0.85-1.17); PROTIME 15.3 SECONDS (11.6-15.0)
[2020-01-13 07:05] LABS: D-DIMER-QUANTITATIVE 2.15 ug/mLFEU (0.20-0.54)
[2020-01-13 07:07] LABS: WBC 5.6 10x3/uL (4.8-10.8)
[2020-01-13 07:12] LABS: CALC OSMOLALITY 284 mosm/kg (275-300); CALCIUM 8.8 mg/dL (8.5-10.1); CARBON DIOXIDE 29.6 mmol/L (21.0-32.0); CHLORIDE - SERUM 100 mmol/L (98-107); CKMB 0.6 U/L (0.0-3.6); CREATINE KINASE 63 UL (21-232); CREATININE - SERUM 1.4 mg/dL (0.6-1.3); DIGOXIN 0.06 ng/mL (0.90-2.00); GLUCOSE 165 mg/dL (74-106); MAGNESIUM - SERUM 2.3 mg/dL (1.8-2.4); PHOSPHOROUS 3.4 mg/dL (2.5-4.9); PRO BNP 336 pg/mL (0-125); SODIUM 138 mmol/L (136-145); TROPONIN-I < 0.017 ng/mL (0.000-0.060); UREA NITROGEN 27 mg/dL (7-18); eGFR NON AFRICAN AMERICAN 54 mL/min (90-120)
[2020-01-13 07:15] LABS: POTASSIUM - SERUM 3.9 mmol/L (3.5-5.1)
[2020-01-13 07:52] VITALS: BP 115/71
[2020-01-13 11:04] LABS: BACTERIA FEW /hpf (NEGATIVE); BILIRUBIN NEGATIVE (NEGATIVE); EPITHELIAL CELLS OCC /hpf (0-5); GLUCOSE NEGATIVE (NEGATIVE); KETONE NEGATIVE (NEGATIVE); NITRITE NEGATIVE (NEGATIVE); RED CELLS - URINE RARE /hpf (0-5); UROBILINOGEN NORMAL (NORMAL); WHITE CELLS - URINE OCC /hpf (NEGATIVE)
[2020-01-13 11:36] VITALS: BP 139/64
[2020-01-13 14:48] VITALS: BP 149/63
--- NOTE | 2020-01-13 19:31 | NUR ---
ALERT AND ASKING MANY QUESTIONS THAT I ATTEMPT TO ANSWER BED LOW AND LOCKED RECIEVING ANTIBIOTIC THROUGH IV BED LOW AND LOCKED
[2020-01-14] VITALS: BP 155/78
--- NOTE | 2020-01-14 03:44 | NUR ---
I have reviewed this patient and I concur with the Shift Assessment completed by the Licensed Practical Nurse today this shift.
[2020-01-14 04:00] VITALS: BP 147/72
[2020-01-14 05:51] LABS: BASOPHILS 0 % (0-2); EOSINOPHILS 0 % (0-7); HEMATOCRIT 40.1 % (42.0-54.0); HEMOGLOBIN 12.6 g/dL (13.5-17.5); IMMATURE GRANULOCYTES 0.3 % (0-5); LYMPHOCYTES 6.8 % (15-50); MCH 26.5 pg (26.0-34.0); MCHC 31.4 g/dL (31.0-37.0); MCV 84.2 fL (80.0-100.0); MEAN PLATELET VOLUME 9.4 fL (7.4-10.4); MONOCYTES 2.1 % (2-11); NEUTROPHILS 90.8 % (40-80); PLATELET COUNT 208 10x3/uL (130-400); RBC 4.76 10x6/uL (4.20-6.10); RDW 12.7 % (11.5-14.5)
[2020-01-14 06:15] LABS: WBC 11.6 10x3/uL (4.8-10.8)
[2020-01-14 06:21] LABS: ANION GAP 9.3 mmol/L (8-16); CALCIUM 8.6 mg/dL (8.5-10.1); CARBON DIOXIDE 29.6 mmol/L (21.0-32.0); CREATININE - SERUM 1.1 mg/dL (0.6-1.3); POTASSIUM - SERUM 3.9 mmol/L (3.5-5.1)
--- NOTE | 2020-01-14 07:10 | NUR ---
REPORT RECEIVED FROM NIGHT AND PATIENT CARE ASSUMED. PATIENT LAYING IN BED ON BACK AWAKE, ALERT AND ORIENTED X 4.PATIENT IS STABLE AND VSS. PATIENT DENIES ANY NEEDS OR PAIN. WILL CONTINUE WITH PLAN OF CARE. SR UP X 2 BED IN LOW POSITION AND CALL LIGHT IN REACH.
[2020-01-14 09:24] VITALS: BP 163/68
--- NOTE | 2020-01-14 10:09 | NUR ---
PATIENT CONTINUES TO BE STABLE AND VSS. PATIENT DENIES ANY NEEDS OR PAIN. PATIENT UP TO SHOWER. ASESSMENT COMPLETED.
[2020-01-14 11:43] VITALS: BP 140/67
[2020-01-14] MEDS ORDERED: OMNICEF300 MG PO (13:42)
[2020-01-14] MEDS ORDERED: ZITHROMAX500 MG PO (13:42)
[2020-01-14] MEDS ORDERED: ALBUTEROL SULF8.5 GM INH (13:43)
[2020-01-14] MEDS ORDERED: STERAPRED DS 1010 MG PO (13:43)
--- NOTE | 2020-01-14 15:02 | NUR ---
PATIENT IS STABLE AND VSS. PATIENT DENIES ANY NEEDS OR PAIN. ORDERS RECEIVED FOR DC. WRITTEN AND VERBAL INSTRUCTIONS GIVEN TO PATIENT AND PATIENT VERBALIZED UNDERSTANDING AND SIGNED INSTRUCTIONS. IV DCD WITHOUT DIFFICULTY AND PRESSURE BANDAGE APPLIED. PATIENT IS DRESSED AND READY FOR PICK. HE IS AWAITING HIS RIDE.
--- NOTE | 2020-01-14 16:27 | MORECARE ---
CASE MANAGEMENT DISCHARGE SUMMARY PATIENT: MAYELA SOLITARIO JR UNIT: [id number] ADM DATE: 01/12/20 AGE: 65 : 57 SEX: M ROOM/BED: D.210 AUTHOR: DALIA RING PHYSICIAN: REFERRING PHYSICIAN: JEMAL KHAN MD DATE OF SERVICE: 01/14/20 Discharge Plan Patient Name: MAYELA SOLITARIO [facility] [facility] 1955 Planned Disposition: Home Anticipated Discharge Date: 01/14/20 Discharge Date: Expected LOS: 2 Initial Reviewer: [email or web address] Initial Review Date: 01/14/2020 Generated: 01/14/20 5:27 pm DCPIA - Discharge Planning Initial Assessment Updated by [email or web address]: Olga Steele on 01/14/20 4:26 pm * Is the patient Alert and Oriented? Yes * PCP Dr[facility] * Preadmission Environment Home with Family * ADLs Independent * Equipment Cane * List name and contact numbers for known caregivers / representatives who currently or will assist patient after discharge: Zen Solitario [facility] - [phone] * Verbal permission to speak to the caregivers and representatives has been obtained from the patient. Yes * Community resources currently utilized None * Additional services required to return to the preadmission environment? No * Can the patient safely return to the preadmission environment? Yes * Has this patient been hospitalized within the prior 30 days at any hospital? No Patient Name: MAYELA SOLITARIO Page [phone] at 1627 All edits/amendments must be made on the electronic document DICTATION DATE: 01/14/201626 SWING SAW OPERATOR: SARIAH 01/14/201626 RPT#: [id number] DC DATE: STATUS: ADM IN [facility] [address] [place] [address] END OF REPORT
--- NOTE | 2020-01-14 16:38 | MORECARE ---
CASE MANAGEMENT DISCHARGE SUMMARY PATIENT: MAYELA SOLITARIO JR UNIT: [id number] ADM DATE: 01/12/20 AGE: 65 : 57 SEX: M ROOM/BED: D.2102 AUTHOR: JHONATHAN,DOC PHYSICIAN: REFERRING PHYSICIAN: JEMAL KHAN MD DATE OF SERVICE: 01/14/20 Discharge Plan Patient Name: MAYELA SOLITARIO Facility: [facility]:[place] : 1955 Planned Disposition: Home Anticipated Discharge Date: 01/14/20 Discharge Date: Expected LOS: 2 Initial Reviewer: [email or web address] Initial Review Date: 01/14/2020 Generated: 01/14/20 5:37 pm Comments DCP- Discharge Planning Updated by [email or web address]: Olga Steele on 01/14/20 3:[address] Patient Name: MAYELA SOLITARIO Admission Status: ER Accout number: [id number] Admission Date: 01-12-2020 : 1955 Admission Diagnosis:FEVER, UNSPECIFIED Attending: JEMLA KHAN Current LOS: 2 Anticipated DC Date: 01-14-2020 Planned Disposition: Home Primary [place]: [place] [employer] [place] Discharge Planning Comments: CM met with patient to discuss discharge planning/needs. States he lives with his independently. States he still is working. States he does not need any DME. He states that he has an oxygen concentrator that was his MIL and he has a cane, but walks unaided. He has questions about his and Medicare and I referred him to [employer]. Home today, no needs. Gauge Machine Operator: Olga Steele DCPIA - Discharge Planning Initial Assessment Updated by [email or web address]: Olga Steele on 01/14/20 4:26 pm * Is the patient Alert and Oriented? Yes * PCP Dr[facility] * Preadmission Environment Home with Family * ADLs Independent * Equipment Cane * List name and contact numbers for known caregivers / representatives who currently or will assist patient after discharge: Zen Solitario - dru - [phone] * Verbal permission to speak to the caregivers and representatives has been obtained from the patient. Yes * Community resources currently utilized None * Additional services required to return to the preadmission environment? No * Can the patient safely return to the preadmission environment? Yes * Has this patient been hospitalized within the prior 30 days at any hospital? No Last DP export: 01/14/20 3:27 p Patient Name: MAYELA SOLITARIO Page [phone] at 1638 All edits/amendments must be made on the electronic document DICTATION DATE: 01/14/201636 HOLIDAY DETECTOR OPERATOR: SARIAH 01/14/201636 RPT#: [id number] DC DATE: STATUS: ADM IN [facility] [address] [place] [address] END OF REPORT
== END 2020-01-14 17:26 | disposition home or self-care (01) | DRG 193 ==
LOC: D.ER 16:48 → D.M2 19:17
PROVIDERS: Family Medicine; ADMIT Internal Medicine Nephrology; ATTEND Internal Medicine Nephrology
DX: J18.9 Pneumonia, unspecified organism (principal); I50.31 Acute diastolic (congestive) heart failure; J44.0 Chronic obstructive pulmonary disease with (acute) lower respiratory infection; E87.1 Hypo-osmolality and hyponatremia; N17.9 Acute kidney failure, unspecified; J44.1 Chronic obstructive pulmonary disease with (acute) exacerbation; I11.0 Hypertensive heart disease with heart failure; E78.5 Hyperlipidemia, unspecified; E87.6 Hypokalemia; I48.91 Unspecified atrial fibrillation

== ENCOUNTER 2020-04-06 16:41 | Inpatient (IN) | payer MEDICAID ==
[~2020-04-06] VITALS: Ht 193 cm; Wt 99.1 kg
[~2020-04-06 16:41] MED LIST changes: +ALBUTEROL SULF8.5 GM INH; +OMNICEF300 MG PO; +STERAPRED DS 1010 MG PO; +ZITHROMAX500 MG PO
[2020-04-06 18:07] LABS: BASOPHILS 0.2 % (0-2); EOSINOPHILS 0.1 % (0-7); HEMATOCRIT 40.8 % (42.0-54.0); HEMOGLOBIN 12.4 g/dL (13.5-17.5); IMMATURE GRANULOCYTES 0.4 % (0-5); LYMPHOCYTES 15.3 % (15-50); MCH 26.2 pg (26.0-34.0); MCHC 30.4 g/dL (31.0-37.0); MCV 86.1 fL (80.0-100.0); MEAN PLATELET VOLUME 8.7 fL (7.4-10.4); PLATELET COUNT 228 10x3/uL (130-400); RBC 4.74 10x6/uL (4.20-6.10); RDW 13.8 % (11.5-14.5); WBC 11.6 10x3/uL (4.8-10.8)
[2020-04-06 18:23] LABS: INR 1.29 (0.85-1.17)
[2020-04-06 18:34] LABS: ALKALINE PHOSPHATASE 70 U/L (30-120); ALT (SGPT) 19 U/L (10-68); BILIRUBIN - TOTAL 0.79 mg/dL (0.2-1.3); CALCIUM 8.8 mg/dL (8.5-10.1); CARBON DIOXIDE 35.5 mmol/L (21.0-32.0); CHLORIDE - SERUM 98 mmol/L (98-107); CKMB 0.3 U/L (0.0-3.6); CREATINE KINASE 22 UL (21-232); CREATININE - SERUM 1.5 mg/dL (0.6-1.3); PRO BNP 679 pg/mL (0-125); PROTEIN - SERUM 7.2 g/dL (6.4-8.2); SODIUM 137 mmol/L (136-145); TROPONIN-I < 0.017 ng/mL (0.000-0.060); UREA NITROGEN 22 mg/dL (7-18); eGFR NON AFRICAN AMERICAN 50 mL/min (90-120)
[2020-04-06 18:36] LABS: CALC OSMOLALITY 279 mosm/kg (275-300); GLUCOSE 150 mg/dL (74-106)
[2020-04-06 18:40] LABS: POTASSIUM - SERUM 2.9 mmol/L (3.5-5.1)
--- NOTE | 2020-04-06 18:41 | NUR ---
CC LAB REC'D, KCL 2.9, DR SAN NOTIFIED
[2020-04-06 20:41] VITALS: BP 172/79
[2020-04-06 22:41] VITALS: BP 163/75
--- NOTE | 2020-04-07 01:03 | NUR ---
WHEN I TOLD PATIENT I HAD MEDICATION TO GIVE HIM HE ASKED IF IT WAS ANYTHING IMPORTANT OR CAN IT WAIT UNTIL MORNING IM JUST NOT FEELING WELL, I HAVENT ATE AND DONT WANT TO TAKE MEDICATION ON AN EMPTY STOMACH. EXPLAINED WHAT MEDICATIONS AND HE SAID HE'LL TAKE THEM IN THE MORNING. GAVE PATIENT A SANDWICH AND GOT HIM COMFORTABLE IN HIS ROOM. CALL LIGHT WITHIN REACH AND BED IN LOWEST LOCKED POSITION.
[2020-04-07] MEDS ORDERED: HYDROCHLOROTHIA25 MG PO (01:35)
[2020-04-07] MEDS ORDERED: CATAPRES0.1 MG PO (01:37)
[2020-04-07 04:00] VITALS: BP 147/62
[2020-04-07 08:50] VITALS: BP 165/78
--- NOTE | 2020-04-07 09:10 | NUR ---
CALLED LAB AND ASKED WHY PT'S LABS HAVE NOT BEEN RECEVIED. THEY STATED THEY WILL HAVE TO CALL AROUND AND CALL ME BACK. I VERBALIZED UNDERSTANDING.
--- NOTE | 2020-04-07 09:29 | NUR ---
PT STATES HE IS NOT COUGHING UP ANY SPUTUM. EXPLAINED SPUTUM COLLECTION TO PT AND GAVE HIM SPUTUM COLLECTION CONTAINER. ALSO TEACHIND ONE ON URINE COLLECTION AND GAVE PT URINE CUP AND STATED TO HIM TO USE CALL LIGHT WHEN HE HAS URINE COLLECTED. PT VERBALIZED UNDERSTANDING. PT STATES HE HAS NO FURTHER NEEDS AT THIS TIME. BED LOW. CL IN REACH. WILL CONTINUE WITH POC.
[2020-04-07 10:02] LABS: BASOPHILS 0 % (0-2); EOSINOPHILS 0 % (0-7); HEMATOCRIT 42.1 % (42.0-54.0); HEMOGLOBIN 13.1 g/dL (13.5-17.5); IMMATURE GRANULOCYTES 0.2 % (0-5); LYMPHOCYTES 8.6 % (15-50); MCH 26.7 pg (26.0-34.0); MCHC 31.1 g/dL (31.0-37.0); MCV 85.9 fL (80.0-100.0); MEAN PLATELET VOLUME 8.8 fL (7.4-10.4); MONOCYTES 1.7 % (2-11); NEUTROPHILS 89.5 % (40-80); PLATELET COUNT 198 10x3/uL (130-400); RDW 13.7 % (11.5-14.5)
[2020-04-07 10:03] LABS: WBC 6.4 10x3/uL (4.8-10.8)
[2020-04-07 10:28] LABS: ALBUMIN 2.8 g/dL (3.4-5.0); BILIRUBIN - TOTAL 0.45 mg/dL (0.2-1.3); CALCIUM 8.5 mg/dL (8.5-10.1); CARBON DIOXIDE 35.9 mmol/L (21.0-32.0); CREATININE - SERUM 1.2 mg/dL (0.6-1.3); MAGNESIUM - SERUM 2.1 mg/dL (1.8-2.4); PHOSPHOROUS 2.5 mg/dL (2.5-4.9); POTASSIUM - SERUM 3.9 mmol/L (3.5-5.1); PROTEIN - SERUM 6.2 g/dL (6.4-8.2)
[2020-04-07 10:33] LABS: C-REACTIVE PROTEIN 20.8 mg/dL (0.0-0.9)
--- NOTE | 2020-04-07 11:18 | NUR ---
PT TV BROKEN. WORK ORDER PLACED.
[2020-04-07 11:27] VITALS: BP 151/68
--- NOTE | 2020-04-07 11:30 | NUR ---
PT TOOK SHOWER BY SELF.
--- NOTE | 2020-04-07 13:25 | NUR ---
CALLED LAB ABOUT T-SPOT AND PPD SKIN TEST. THEY STATE THEY DO THE T-SPOT AND ITS A BLOOD DRAW AND IT TAKES 48HR'S FOR RESULTS AND THE PPD SKIN TEST THE NURSE DOES. CALLED PHARMACY ABOUT GETTING MEDICATION TO DO PPD SKIN TEST AND THEY TSTAED THEY WILL BRING IT. I VERBALIZED UNDERSTANDING.
[2020-04-07 13:30] LABS: BILIRUBIN NEGATIVE (NEGATIVE); GLUCOSE NEGATIVE (NEGATIVE); KETONE NEGATIVE (NEGATIVE); NITRITE NEGATIVE (NEGATIVE); UROBILINOGEN NORMAL (NORMAL)
[2020-04-07 13:33] VITALS: Ht 193 cm; Wt 99.1 kg
--- NOTE | 2020-04-07 14:23 | NUR ---
BRONCHOSCOPY CONSENTS SIGNED AND PLACED IN CHART. TB SKIN TEST DONE ON RIGHT FA AND CIRCLED AND INITIALED SITE. TB FORM FILLED OUT AND PLACED IN CHART.
[2020-04-07 16:14] VITALS: BP 141/61
--- NOTE | 2020-04-07 16:44 | NUR ---
I have reviewed this patient and I concur with the Shift Assessment completed by the Licensed Practical Nurse today this shift.
--- NOTE | 2020-04-07 19:35 | NUR ---
PATIENT IS RESTING IN BED. HE IS ALERT AND ORIENTATED. HE IS ON DROPLET FOR INFECTIOUS PNEUMONITIS. HE IS ON ROOM AIR. WE WILL CONTINUE TO MONITOR HIS RESPIRATORY STATUS.
[2020-04-07 20:00] VITALS: BP 123/57
--- NOTE | 2020-04-08 04:06 | NUR ---
PATIENT IS SLEEPING IN BED. HE HAS BEEN NPO SINCE MIDNIGHT, FOR A BROCHOSCOPY. WE WILL CONTINUE TO MONITOR HIS RESPIRATORY STATUS.
[2020-04-08 06:29] LABS: HEMOGLOBIN 11.1 g/dL (13.5-17.5); LYMPHOCYTES 14.5 % (15-50); MCH 26.5 pg (26.0-34.0); MCHC 30.8 g/dL (31.0-37.0); MCV 85.9 fL (80.0-100.0); MEAN PLATELET VOLUME 8.4 fL (7.4-10.4); NEUTROPHILS 81.5 % (40-80); RBC 4.19 10x6/uL (4.20-6.10); RDW 13.2 % (11.5-14.5)
[2020-04-08 06:32] LABS: PLATELET COUNT 266 10x3/uL (130-400); WBC 11.7 10x3/uL (4.8-10.8)
[2020-04-08 06:43] LABS: CALC OSMOLALITY 281 mosm/kg (275-300); CALCIUM 8.3 mg/dL (8.5-10.1); CARBON DIOXIDE 30.4 mmol/L (21.0-32.0); CHLORIDE - SERUM 104 mmol/L (98-107); MAGNESIUM - SERUM 1.9 mg/dL (1.8-2.4); PHOSPHOROUS 3.1 mg/dL (2.5-4.9); POTASSIUM - SERUM 3.7 mmol/L (3.5-5.1); SODIUM 139 mmol/L (136-145); UREA NITROGEN 18 mg/dL (7-18); eGFR NON AFRICAN AMERICAN 80 mL/min (90-120)
[2020-04-08 06:46] LABS: GLUCOSE 134 mg/dL (74-106)
[2020-04-08 08:58] VITALS: BP 152/58
--- NOTE | 2020-04-08 12:15 | NUR ---
PT BROUGHT BACK FROM [facility] RN STATES PT STATES HE COUGHS A LOT WHEN EATING. PT ALERT AND ORIENTED. PT RECEVIED 2 VERSED AND 25 FENTANYL. SHE STATES PT CAN'T EAT OR DRINK FOR TWO HOURS. DR. DE JESUS STATES TO WAIT TO DO A SWALLOW EVAL UNTIL PT'S PPD COMES BACK AT NEGATIVE. I VERBALIZED UNDERSTANDING.
--- NOTE | 2020-04-08 13:27 | NUR ---
I have reviewed this patient and I concur with the Shift Assessment completed by the Licensed Practical Nurse today this shift.
[2020-04-08 15:17] VITALS: BP 157/74
--- NOTE | 2020-04-08 17:14 | NUR ---
CALLED AND SPOKE WITH [facility] ABOUT SPUTUM TEST RESULTS. THEY STATE GRAM POSITIVE COCCI INDICATES PT DOES NOT HAVE TB AND THAT PT DOES NOT NEED TO BE ON AIRBORN PRECAUTIONS AND THAT DROPLET PRECAUTIONS IS ENOUGH. I VEBRALIZED UNDERSTANDING.
[2020-04-08 21:24] VITALS: BP 174/77
--- NOTE | 2020-04-08 21:28 | NUR ---
PATIENT IS RESTING IN BED. HE IS COMPLAINING OF IV ANTIBIOTIC BURNING. IV SITE IS WNL. WE WILL TRY STARTING A NEW IV IN PATIENT.
[2020-04-09 03:59] VITALS: BP 128/56
--- NOTE | 2020-04-09 04:14 | NUR ---
OLD IV WAS TAKEN OUT. PATIENT WAS A HARD STICK, SO HE WENT WITH OUT IV FLUIDS AND ANTIBIOTICS UNTIL NOW. HE HAS NO COMPLAINTS AT THIS TIME.
[2020-04-09 07:01] LABS: BASOPHILS 0.1 % (0-2); EOSINOPHILS 0.1 % (0-7); HEMATOCRIT 40.7 % (42.0-54.0); HEMOGLOBIN 12.4 g/dL (13.5-17.5); IMMATURE GRANULOCYTES 0.3 % (0-5); LYMPHOCYTES 22.5 % (15-50); MCH 26.2 pg (26.0-34.0); MCHC 30.5 g/dL (31.0-37.0); MEAN PLATELET VOLUME 8.9 fL (7.4-10.4); MONOCYTES 6.6 % (2-11); NEUTROPHILS 70.4 % (40-80); PLATELET COUNT 231 10x3/uL (130-400); RBC 4.73 10x6/uL (4.20-6.10); RDW 13.9 % (11.5-14.5); WBC 10.5 10x3/uL (4.8-10.8)
[2020-04-09 07:41] LABS: CALC OSMOLALITY 289 mosm/kg (275-300); CALCIUM 8.3 mg/dL (8.5-10.1); CARBON DIOXIDE 31.5 mmol/L (21.0-32.0); CHLORIDE - SERUM 107 mmol/L (98-107); GLUCOSE 93 mg/dL (74-106); PHOSPHOROUS 3.3 mg/dL (2.5-4.9); POTASSIUM - SERUM 3.8 mmol/L (3.5-5.1); SODIUM 145 mmol/L (136-145); UREA NITROGEN 15 mg/dL (7-18); eGFR NON AFRICAN AMERICAN 80 mL/min (90-120)
[2020-04-09 13:11] LABS: FUNGUS STAIN Final report (())
--- NOTE | 2020-04-09 13:43 | NUR ---
Nutrition Follow-up: Pt remains in droplet isolation. Bronch & BAL yesterday; awaiting cultures. Nursing reports pt eating well. Diet: Cardiac Wt: 224# (04/07) Last BM: 04/09 Labs noted: Ca 8.3 Meds noted: NS @ 75, electrolyte protocol -Encourage PO intake and honor food preferences within diet restrictions. -Monitor wt; noted daily wts ordered. -RD following.
[2020-04-09 17:09] LABS: ACID FAST SMEAR Negative (()); AFB SPECIMEN PROCESSING Concentration (())
--- NOTE | 2020-04-09 19:15 | NUR ---
PATIENT IS RESTING COMFORTABLY IN BED. HE IS ALERT AND ORIENTED. WE WILL CONTINUE TO MONITOR HIS RESPIRATORY STATUS.
[2020-04-09 20:45] VITALS: BP 158/68
[2020-04-10 00:45] VITALS: BP 141/60
--- NOTE | 2020-04-10 03:20 | NUR ---
PATIENT IS SLEEPING IN BED. HE IS STILL ON ROOM AIR. HE HAS NO COMPLAINTS AT THIS TIME. WE WILL CONTINUE TO MONITOR HIS RESPIRATORY STATUS.
[2020-04-10 05:19] VITALS: BP 151/75
[2020-04-10 06:08] LABS: BASOPHILS 0.2 % (0-2); EOSINOPHILS 0.7 % (0-7); HEMATOCRIT 41.2 % (42.0-54.0); HEMOGLOBIN 12.6 g/dL (13.5-17.5); IMMATURE GRANULOCYTES 0.3 % (0-5); LYMPHOCYTES 24.5 % (15-50); MCH 26.1 pg (26.0-34.0); MCHC 30.6 g/dL (31.0-37.0); MCV 85.5 fL (80.0-100.0); MEAN PLATELET VOLUME 8.7 fL (7.4-10.4); MONOCYTES 6.5 % (2-11); NEUTROPHILS 67.8 % (40-80); PLATELET COUNT 224 10x3/uL (130-400); RBC 4.82 10x6/uL (4.20-6.10); RDW 13.8 % (11.5-14.5); WBC 9.1 10x3/uL (4.8-10.8)
[2020-04-10 06:37] LABS: CALCIUM 8.8 mg/dL (8.5-10.1); CARBON DIOXIDE 28.4 mmol/L (21.0-32.0); CREATININE - SERUM 1.1 mg/dL (0.6-1.3); MAGNESIUM - SERUM 2.1 mg/dL (1.8-2.4); PHOSPHOROUS 4.2 mg/dL (2.5-4.9); POTASSIUM - SERUM 3.4 mmol/L (3.5-5.1)
--- NOTE | 2020-04-10 08:40 | NUR ---
PT EATING BREAKFAST, PERSONAL ITEMS WITHIN REACH. DENIES ANY PAIN, CALL LIGHT WITHIN REACH, NO NEEDS AT THIS TIME.
[2020-04-10 10:51] VITALS: BP 146/68
--- NOTE | 2020-04-10 15:33 | NUR ---
PT HAD SHOWER AND COMPLETE LINEN CHANGE.
--- NOTE | 2020-04-10 19:10 | NUR ---
REPORT RECEIVED, PT CARE ASSUMED. INTRODUCED SELF AND WROTE NAME ON BOARD. PT LYING IN BED, WATCHING TV, AAOX4. REQUESTING COFFEE, PROVIDED. DENIES ANY OTHER NEEDS AT THIS TIME. BED IN LOWEST, SRX2, CALL LIGHT WITHIN REACH. WILL CTM.
--- NOTE | 2020-04-10 19:47 | NUR ---
PT RESTING IN BED, UP @ VIKAS FOR PERSONAL NEEDS. PT CALL LIGHT AND PERSONAL ITEMS AT THE BEDSIDE WITHIN REACH.
--- NOTE | 2020-04-10 22:00 | NUR ---
ASSUMED PT CARE FROM PREVIOUS NURSE. PIV D/C FROM LEFT AC AND RESITED TO RIGHT FA AND LEFT HAND. PT TOLERATED WELL. NO DISTRESS OBSERVED. IV FLUIDS INFUSING ORDERED. NO FURTHER NEEDS EXPRESSED. CALL LIGHT IN REACH. WILL CPOC.
[2020-04-11 02:00] VITALS: BP 128/54
[2020-04-11 06:49] LABS: BASOPHILS 0.1 % (0-2); EOSINOPHILS 0.9 % (0-7); HEMATOCRIT 40.2 % (42.0-54.0); HEMOGLOBIN 12.4 g/dL (13.5-17.5); IMMATURE GRANULOCYTES 0.9 % (0-5); LYMPHOCYTES 20.8 % (15-50); MCH 26.2 pg (26.0-34.0); MCHC 30.8 g/dL (31.0-37.0); MEAN PLATELET VOLUME 8.7 fL (7.4-10.4); MONOCYTES 6.6 % (2-11); NEUTROPHILS 70.7 % (40-80); PLATELET COUNT 187 10x3/uL (130-400); RBC 4.73 10x6/uL (4.20-6.10); RDW 13.7 % (11.5-14.5)
[2020-04-11 07:02] LABS: ANION GAP 4.2 mmol/L (8-16); CALCIUM 8.3 mg/dL (8.5-10.1); CARBON DIOXIDE 32.5 mmol/L (21.0-32.0); CREATININE - SERUM 1.1 mg/dL (0.6-1.3); MAGNESIUM - SERUM 1.9 mg/dL (1.8-2.4); PHOSPHOROUS 3.3 mg/dL (2.5-4.9); POTASSIUM - SERUM 3.7 mmol/L (3.5-5.1)
[2020-04-11 09:48] VITALS: BP 150/77
[2020-04-11 21:24] VITALS: BP 156/69
[2020-04-12 04:45] VITALS: BP 149/62
[2020-04-12 05:44] LABS: BASOPHILS 0.2 % (0-2); EOSINOPHILS 1.8 % (0-7); HEMATOCRIT 39.4 % (42.0-54.0); HEMOGLOBIN 12.1 g/dL (13.5-17.5); IMMATURE GRANULOCYTES 0.7 % (0-5); MCH 26.1 pg (26.0-34.0); MCHC 30.7 g/dL (31.0-37.0); MCV 85.1 fL (80.0-100.0); MEAN PLATELET VOLUME 8.6 fL (7.4-10.4); MONOCYTES 6.2 % (2-11); NEUTROPHILS 70.1 % (40-80); PLATELET COUNT 184 10x3/uL (130-400); RBC 4.63 10x6/uL (4.20-6.10); RDW 13.8 % (11.5-14.5); WBC 9.9 10x3/uL (4.8-10.8)
[2020-04-12 06:22] LABS: CALC OSMOLALITY 286 mosm/kg (275-300); CALCIUM 8.2 mg/dL (8.5-10.1); CARBON DIOXIDE 28.4 mmol/L (21.0-32.0); CHLORIDE - SERUM 107 mmol/L (98-107); GLUCOSE 106 mg/dL (74-106); PHOSPHOROUS 3.6 mg/dL (2.5-4.9); SODIUM 144 mmol/L (136-145); UREA NITROGEN 13 mg/dL (7-18); eGFR NON AFRICAN AMERICAN 80 mL/min (90-120)
[2020-04-12 10:22] VITALS: BP 186/80
[2020-04-12 13:06] VITALS: BP 189/98
[2020-04-12 18:28] VITALS: BP 159/83
--- NOTE | 2020-04-12 19:00 | NUR ---
EVENING ROUNDS COMPLETE. PT SITTING UP IN BED, AAOX4. NO SIGNS OF DISTRESS. PT DENIES ANY PAIN AT THIS TIME. REQUEST FOR COFFEE AND BLANKET, PROVIDED. NO OTHER NEEDS VOICED AT THIS TIME. CL IN REACH, BED IN LOWEST POSITION.
[2020-04-12 20:00] VITALS: BP 146/77
[2020-04-13 06:50] LABS: BASOPHILS 0.2 % (0-2); EOSINOPHILS 1.9 % (0-7); HEMATOCRIT 39.5 % (42.0-54.0); HEMOGLOBIN 12.3 g/dL (13.5-17.5); IMMATURE GRANULOCYTES 0.5 % (0-5); LYMPHOCYTES 19.2 % (15-50); MCH 26.3 pg (26.0-34.0); MCHC 31.1 g/dL (31.0-37.0); MCV 84.4 fL (80.0-100.0); MEAN PLATELET VOLUME 8.6 fL (7.4-10.4); MONOCYTES 7.1 % (2-11); NEUTROPHILS 71.1 % (40-80); PLATELET COUNT 172 10x3/uL (130-400); RBC 4.68 10x6/uL (4.20-6.10); RDW 13.9 % (11.5-14.5); WBC 9.5 10x3/uL (4.8-10.8)
[2020-04-13 07:26] LABS: CALC OSMOLALITY 277 mosm/kg (275-300); CALCIUM 8.9 mg/dL (8.5-10.1); CARBON DIOXIDE 28.9 mmol/L (21.0-32.0); CHLORIDE - SERUM 106 mmol/L (98-107); GLUCOSE 105 mg/dL (74-106); POTASSIUM - SERUM 3.7 mmol/L (3.5-5.1); SODIUM 140 mmol/L (136-145); UREA NITROGEN 11 mg/dL (7-18); eGFR NON AFRICAN AMERICAN 80 mL/min (90-120)
[2020-04-13 10:00] VITALS: BP 159/78
[2020-04-13 11:44] VITALS: BP 169/74
--- NOTE | 2020-04-13 14:17 | NUR ---
Nutrition Follow-up: Eating well. ST following; noted no s/s of aspiration. Diet: Cardiac PO intake: 75-100% No new wt; last wt: 224# (04/07) Labs reviewed Meds noted: NS @ 75, electrolyte protocol -Need new wt; noted daily wts ordered. - following.
--- NOTE | 2020-04-13 17:03 | NUR ---
I have reviewed this patient and I concur with the Shift Assessment completed by the Licensed Practical Nurse today this shift.
--- NOTE | 2020-04-13 19:00 | NUR ---
REPORT RECEIVED, WILL CONTINUE POC. PATIENT IS AAOX4, SITTING UP IN BED. NO S/S OF DISTRESS OBSERVED, RR EVEN AND UNLABORED ON ROOM AIR. PATIENT DENIES NEEDS AT THIS TIME. CL IN REACH, BED LOCKED AND LOWERED. WILL CTM.
[2020-04-13 20:00] VITALS: BP 162/76
[2020-04-14] VITALS: BP 159/73
[2020-04-14 04:00] VITALS: BP 160/60
[2020-04-14 06:48] LABS: CALC OSMOLALITY 274 mosm/kg (275-300); CALCIUM 8.5 mg/dL (8.5-10.1); CARBON DIOXIDE 28.3 mmol/L (21.0-32.0); CHLORIDE - SERUM 104 mmol/L (98-107); GLUCOSE 99 mg/dL (74-106); POTASSIUM - SERUM 3.6 mmol/L (3.5-5.1); SODIUM 138 mmol/L (136-145); UREA NITROGEN 11 mg/dL (7-18); eGFR NON AFRICAN AMERICAN 80 mL/min (90-120)
[2020-04-14 07:53] LABS: BASOPHILS 0.1 % (0-2); EOSINOPHILS 1.8 % (0-7); HEMATOCRIT 38.5 % (42.0-54.0); HEMOGLOBIN 12.1 g/dL (13.5-17.5); IMMATURE GRANULOCYTES 0.3 % (0-5); LYMPHOCYTES 19.6 % (15-50); MCH 26.5 pg (26.0-34.0); MCHC 31.4 g/dL (31.0-37.0); MCV 84.2 fL (80.0-100.0); MEAN PLATELET VOLUME 8.9 fL (7.4-10.4); MONOCYTES 7.4 % (2-11); NEUTROPHILS 70.8 % (40-80); PLATELET COUNT 195 10x3/uL (130-400); RBC 4.57 10x6/uL (4.20-6.10); RDW 13.9 % (11.5-14.5); WBC 8.7 10x3/uL (4.8-10.8)
[2020-04-14 09:00] VITALS: BP 164/73
[2020-04-14] MEDS ORDERED: FEXOFENADINE HC60 MG PO (12:11)
[2020-04-14] MEDS ORDERED: MUCINEX600 MG PO (12:12)
[2020-04-14] MEDS ORDERED: LEVOFLOXACIN500 MG PO (12:13)
[2020-04-14] MEDS ORDERED: TESSALON PERLE100 MG PO (12:13)
[2020-04-14 13:36] VITALS: BP 159/75
--- NOTE | 2020-04-14 15:52 | NUR ---
PT'S DC INSTRUCTIONS REVIEWED. IV REMOVED. WHEELED OUT TO ER FOR TRANSPORT.
== END 2020-04-14 15:53 | disposition home or self-care (01) | DRG 177 ==
LOC: D.ER 16:41 → D.M2 21:16
PROVIDERS: Family Medicine; Internal Medicine Pulmonary Disease; ADMIT Family Medicine; ATTEND Family Medicine
PROC: 0B9C8ZX Drainage of Right Upper Lung Lobe, Via Natural or Artificial Opening Endoscopic, Diagnostic (ICD-10-PCS; 2020-04-08)
PROC: 0B9F8ZX Drainage of Right Lower Lung Lobe, Via Natural or Artificial Opening Endoscopic, Diagnostic (ICD-10-PCS; principal; 2020-04-08 11:15)
DX: J15.6 Pneumonia due to other Gram-negative bacteria (principal); J96.22 Acute and chronic respiratory failure with hypercapnia; J96.21 Acute and chronic respiratory failure with hypoxia; N17.9 Acute kidney failure, unspecified; J44.0 Chronic obstructive pulmonary disease with (acute) lower respiratory infection; E87.6 Hypokalemia; D64.9 Anemia, unspecified; I48.91 Unspecified atrial fibrillation; E78.5 Hyperlipidemia, unspecified; G89.29 Other chronic pain; M54.9 Dorsalgia, unspecified

== ENCOUNTER 2020-12-12 17:44 | Inpatient (IN) | payer BC ==
[~2020-12-12] VITALS: Ht 193 cm; Wt 110.7 kg
[~2020-12-12 17:44] MED LIST changes: +FEXOFENADINE HC60 MG PO; +HYDROCHLOROTHIA25 MG PO; +LEVOFLOXACIN500 MG PO; +MUCINEX600 MG PO; +TESSALON PERLE100 MG PO
[2020-12-12] MEDS ORDERED: ACETAMINOPHEN325 MG PO (17:54)
[2020-12-12] MEDS ORDERED: BAYER CHEWABLE81 MG PO (17:55)
[2020-12-12] MEDS ORDERED: LISINOPRIL-HCT1 EAC7 PO (17:56)
[2020-12-12] MEDS ORDERED: OXYCODONE HCL5 M1 PO (17:58)
[2020-12-12] MEDS ORDERED: COLACE100 MG PO (18:01)
[2020-12-12] MEDS ORDERED: ZESTRIL20 MG PO (18:05)
[2020-12-12] MEDS ORDERED: FLOMAX0.4 MG PO (18:05)
[2020-12-12] MEDS ORDERED: HYDRALAZINE HC100 MG PO (18:08)
[2020-12-12] MEDS ORDERED: IPRAT-ALBUT 0.5-3 ML UPD ×2 (18:09→18:12)
[2020-12-12] MEDS ORDERED: NORVASC5 MG PO (18:17)
[2020-12-12] MEDS ORDERED: CATAPRES TTS-10.1 MG TD (18:22)
[2020-12-12] MEDS ORDERED: CATAPRES TTS-20.2 MG TD (18:23)
[2020-12-12] MEDS ORDERED: PRAVACHOL40 MG PO (18:27)
[2020-12-12] MEDS ORDERED: MULTI-DAY VITAM1 TAB PO (18:30)
[2020-12-12] MEDS ORDERED: FLUTICASONE PRO16 GM NASAL (18:31)
[2020-12-12] MEDS ORDERED: RESTORIL15 MG PO (18:37)
[2020-12-12] MEDS ORDERED: ZINC50 MG PO (18:38)
[2020-12-12] MEDS ORDERED: VITAMIN C WIT1000 MG PO (18:38)
[2020-12-12 18:47] VITALS: BP 132/60; BMI 29.7
[2020-12-12 19:00] VITALS: BP 127/48
--- NOTE | 2020-12-12 19:34 | NUR ---
ADMIT FOR PHYSICAL REHAB AND SERVICES OF DR CHOWDARY. AWAKE AND ALERT. RESTING IN BED WITH RESPIRATIONS UNLABORED. LONG TRANSVERSE ABDOMINAL INCISION WITH NABEEL INTACT WITH SLIGHT REDNESS BUT NO DRAINAGE NOTED. SEE ADMISSION ASSESSMENT. REQUEST BED ALARM WAIVER. GAIT STEADY. ORIENTED X 4. EDUCATION DONE TO DECREASE FALL RISK AND INSTRUCTED THAT HE CAN ALWAYS CALL FOR ASSISTANCE IF NEEDED. VOICES UNDERSTANDING.
--- NOTE | 2020-12-13 05:28 | NUR ---
QUIET HOURS. NO ACUTE CHANGES IN CONDITION THIS SHIFT. RESTING IN BED WITH NO DISTRESS NOTED.
--- NOTE | 2020-12-13 06:16 | NUR ---
WITH PHYSICAL THERAPY, O2 SATURATION 88%. O2/2L ORDERED PER NASAL CANNULA.
[2020-12-13 08:36] LABS: BASOPHILS 0.3 % (0-2); EOSINOPHILS 1.5 % (0-7); HEMATOCRIT 33.9 % (42.0-54.0); HEMOGLOBIN 10.7 g/dL (13.5-17.5); IMMATURE GRANULOCYTES 1.2 % (0-5); LYMPHOCYTE ABS# 1.36 10x3/uL (1.32-3.57); LYMPHOCYTES 18.4 % (15-50); MCH 28.3 pg (26.0-34.0); MCHC 31.6 g/dL (31.0-37.0); MCV 89.7 fL (80.0-100.0); MEAN PLATELET VOLUME 8.8 fL (7.4-10.4); MONOCYTES 5.7 % (2-11); NEUTROPHILS 72.9 % (40-80); RBC 3.78 10x6/uL (4.20-6.10); RDW 13.4 % (11.5-14.5); WBC 7.4 10x3/uL (4.8-10.8)
[2020-12-13 08:38] LABS: ANION GAP 9.7 mmol/L (8-16); CALCIUM 8.8 mg/dL (8.5-10.1); CARBON DIOXIDE 30.2 mmol/L (21.0-32.0); CREATININE - SERUM 1.1 mg/dL (0.6-1.3); POTASSIUM - SERUM 3.9 mmol/L (3.5-5.1)
[2020-12-13 08:39] LABS: PLATELET COUNT 373 10x3/uL (130-400)
[2020-12-13 13:14] VITALS: Ht 193 cm; Wt 110.7 kg
--- NOTE | 2020-12-13 18:56 | NUR ---
BEDSIDE REPORT COMPLETE. RECEIVED PT SITTING UP IN CHAIR. ALERT AND ORIENTED X4. CONTINUES ON O2/2L VIA NC. ABDOMINAL NABEEL INTACT SLIGHT REDDNESS ALONG OUTER EDGES. PACU NURSE. POOR VISION IN RIGHT EYE WEARS PATCH AT TIMES. NO IV NOTED. BED/CHAIR ALARM WAIVER SIGNED IN CHART. CALL LIGHT AND WATER WITHIN REACH. CPOC
--- NOTE | 2020-12-14 02:53 | NUR ---
PT LYING IN BED ON RIGHT SIDE EYES CLOSED RESTING. RR EVEN AND UNLABORED. CALL LIGHT WITHIN REACH.
[2020-12-14 08:00] VITALS: BP 122/63
--- NOTE | 2020-12-14 13:08 | NUR ---
PATIENT ADMITTS TO REHAB FROM AN OUTS FACILITY IN [place]. HIS PCP IS DR. LAU. DISCHARGE PLANS ARE FOR HIM TO RETURN HOME WITH HIS SPOUSE. WILL CONTINUE TO FOLLOW WITH PATIENT.
--- NOTE | 2020-12-14 15:28 | NUR ---
RESTING QUIETLY IN BED. HAS C/O ITCHING AND TIGHTNESS TO SKIN OF ABD WHERE INCISION IS LOCATED. WHAT HE FELT WAS THE NABEEL HOLDING INCISION CLOSED BUT HE THOUGHT IT WAS SCABS ON INCISION. SKIN IS RED AROUND THE STAPLE INSERTION SITES BUT INCISION IS NOT RED. HE APPETITE IS FAIR. CALL LIGHT IN REACH
[2020-12-14 19:00] VITALS: BP 123/56
--- NOTE | 2020-12-14 19:05 | NUR ---
BEDSIDE REPORT COMPLETED. RECEIVED PT SITTING UP IN BED WATCHING TV. ALERT AND ORIENTED X4. DENIES ANY NEEDS OR PAIN. NO DISTRESS NOTED. ABDOMINAL INCISION NNEKA WITH NABEEL INTACT. SOME REDNESS ALONG NABEEL INSERTION NOTED. NO DRAINAGE NOTED. C/O LEFT THIGH PAIN ULTRASOUND HAS BEEN ORDERED. NO REDNESS OR WARMTH NOTED IN UPPER THIGH. CALL LIGHT AND WATER WITHIN REACH. BED/CHAIR ALARM WAIVER SIGNED. CPOC
--- NOTE | 2020-12-14 23:41 | NUR ---
PT LYING IN BED SUPINE EYES CLOSED RESTING. HOB ELEVATED. RR EVEN AND UNLABORED. CALL LIGHT WITHIN REACH.
--- NOTE | 2020-12-15 03:11 | NUR ---
PT LYING IN BED ON LEFT SIDE EYES CLOSED RESTING. RR EVEN AND UNLABORED.
[2020-12-15 07:23] LABS: BASOPHILS 0.1 % (0-2); EOSINOPHILS 1.1 % (0-7); HEMATOCRIT 31.6 % (42.0-54.0); HEMOGLOBIN 9.6 g/dL (13.5-17.5); IMMATURE GRANULOCYTES 0.8 % (0-5); LYMPHOCYTE ABS# 1.56 10x3/uL (1.32-3.57); LYMPHOCYTES 18.5 % (15-50); MCH 27.4 pg (26.0-34.0); MCHC 30.4 g/dL (31.0-37.0); MCV 90.3 fL (80.0-100.0); MEAN PLATELET VOLUME 8.9 fL (7.4-10.4); MONOCYTES 8.7 % (2-11); NEUTROPHIL ABS# 5.97 10x3/uL (1.78-5.38); NEUTROPHILS 70.8 % (40-80); PLATELET COUNT 374 10x3/uL (130-400); RDW 13.4 % (11.5-14.5); WBC 8.4 10x3/uL (4.8-10.8)
[2020-12-15 07:54] VITALS: BP 105/53
--- NOTE | 2020-12-15 08:00 | NUR ---
SHIFT ASSMT COMPLETED.
[2020-12-15 08:02] LABS: ANION GAP 9.6 mmol/L (8-16); CALCIUM 8.8 mg/dL (8.5-10.1); CARBON DIOXIDE 30.9 mmol/L (21.0-32.0); CREATININE - SERUM 1.2 mg/dL (0.6-1.3)
[2020-12-15 08:05] LABS: POTASSIUM - SERUM 4.5 mmol/L (3.5-5.1)
--- NOTE | 2020-12-15 14:39 | NUR ---
UPDATES FAXED TO [facility] AT , AUTH. # [id number] WITH FAX CONFORMATION RECIEVED. WILL CONTINUE TO FOLLOW WITH PATIENT.
--- NOTE | 2020-12-15 16:38 | NUR ---
CARE TEAM MEETING: PATIENT IS DOING WELL IN THEAPY. PATIENT WILL BE RA AT NEXT MEETING. WILL CONTINUE TO FOLLOW WITH PATIENT.
--- NOTE | 2020-12-15 20:01 | NUR ---
AWAKE AND ALERT. RESTING IN BED WITH RESPIRATIONS UNLABORED. ABDOMINAL INCISION INTACT WITH NABEEL. NO DISTRESS NOTED. CALL LIGHT IN REACH.
[2020-12-15 21:29] VITALS: BP 144/73
--- NOTE | 2020-12-16 05:02 | NUR ---
QUIET HOURS. NO ACUTE CHANGES IN CONDITION THIS SHIFT. RESTING IN BED WITH NO DISTRESS NOTED.
[2020-12-16 07:49] VITALS: BP 95/42
--- NOTE | 2020-12-16 09:33 | NUR ---
BP THIS AM WAS 95/42. HELD BP MEDS AND RECHEKED AT 0934 BP WAS ONLY 114/43 WILL HOLD ALL BP MEDS AT THIS TIME AND RECHECK BEFORE GIVING NEXT DUE DOSE
--- NOTE | 2020-12-16 19:00 | RHP ---
PATIENT: MAYELA SOLITARIO JR MEDICAL RECORD: [id number] ACCOUNT: [id number] LOCATION:[facility] D.[id number] : 57 ADMISSION DATE: 12/12/20 REHABILITATION HISTORY AND PHYSICAL EXAMINATION POST ADMISSION PHYSICIAN EXAMINATION ADMITTING DIAGNOSIS: Abdominal aortic aneurysm leak. HISTORY OF PRESENT ILLNESS: The patient is a 65-year-old gentleman who lives at home in a 2-level home. He was able to live on the 1-story level. He is independent without assistive device. He was driving and occasionally working. He was performing ADLs prior to hospitalization. Got a history of AAA in the past, peripheral arterial disease, neuropathy, hypertension, hyperlipidemia, hepatitis, CHF, DVT, CVA, COPD. He is a former smoker. He presented to the [facility] on 12/01 with a newly identified type 1A endoleak of which he required surgical intervention. He went to the OR on 12/01 under the care of Dr. Wray for open repair of an abdominal aortic aneurysm and endovascular leak with suprarenal clamping. Postoperatively, he remained in the ICU until 12/08 for evaluation. His diet advanced from 12/07 from clear liquids cardiac with Glucerna added. He has active bowel sounds. He has been passing gas. He has been weak and deconditioned and is requiring supplemental O2, usually does not wear this at home. He had acute blood loss anemia, hyperglycemia. PT and OT was requested by his MD and placement in acute rehab. PT worked with the patient on 12/08 and he required min assist for supine to sit, min assist for sit to supine, and min assist for transfer. He is min assist with ambulation with steadying using assist. He does have 3 steps to get up into his house. He has worked with OT and he is requiring supervision with mod assist with ADLs. Both disciplines recommended to extend his therapy in acute rehabilitation. He does live at home with his ; however, she is not able to care for him secondary to his extended therapy that he needs at this time. He will require 24-hour nursing and MD coverage. Barriers to his returning home at this time are as above. He will need increased independence safety, balance awareness, mobility, ambulation and help with transfers prior to going home. He also wants to be able to drive again because his is unable to transport him, so we need to work on getting that done also. Comorbidities include COPD, debility, decreased mobility, decrease in physical functioning, edema, electrolyte imbalance, hypertension, and hyperlipidemia. He is hard of hearing. He has got hypertension and obesity. He needs cues for safety awareness. PAST MEDICAL HISTORY: Significant for peripheral arterial disease, hypertension, hyperlipidemia, hepatitis. He got CHF. He is a former smoker. Neuropathy, arthritis, pneumonia and CVA. PAST SURGICAL HISTORY: As above. ALLERGIES: PENICILLIN. CURRENT MEDICATIONS: He is on a Catapres TTS patch to apply weekly. He is on zinc 220 daily, ascorbic acid 500 mg daily, multivitamin daily, Flomax 0.4 mg daily, lisinopril 20/12.5 one tab daily, aspirin 81 mg daily, sotalol 120 mg b.i.d., Pravachol 40 mg at bedtime, Singulair 10 mg at bedtime, metoprolol 100 mg b.i.d., hydralazine 100 mg t.i.d., Tessalon Perles 200 mg t.i.d., amlodipine 5 mg b.i.d., Flonase nasal spray 2 sprays daily. He is on Restoril 15 mg at bedtime, OxyIR 5 mg q.4 hours, DuoNeb updrafts as needed, and acetaminophen 650 HISTORY AND PHYSICAL [id number] MAYELA SOLITARIO JR q.6 hours p.r.n. HABITS: Does have a history of tobacco use. FAMILY HISTORY: Noncontributory. SOCIAL HISTORY: The patient hopes to return back home, get back to his normal level of functioning. REVIEW OF SYSTEMS: GENERAL: He does complain of weakness and fatigue. HEENT: Denies cold, cough, congestion. CARDIOVASCULAR: Denies any chest pain. PHYSICAL EXAMINATION: VITAL SIGNS: Stable, afebrile. GENERAL: A well-developed, somewhat obese gentleman in no acute distress, alert upon exam. HEENT: Normocephalic and atraumatic. Mucosa moist. NECK: Supple. No adenopathy. LUNGS: Clear in upper vaughan. No wheezing or rales. HEART: Regular rate and rhythm. Does have a holosystolic murmur. ABDOMEN: Soft, benign, nondistended. His surgical scar looks pretty good. He does have positive bowel sounds times 4. EXTREMITIES: No clubbing, cyanosis or edema. NEUROLOGIC: He does have some weakness. LABORATORY DATA: His white count is 7.4, H&H of 10.7 and 33.9 and platelet count is 373. Sodium 135, potassium 3.9, BUN and creatinine of 15 and 1.1. Blood sugar is noted to be 101. ASSESSMENT: A 65-year-old gentleman admitted to the rehab with a working diagnosis of a recent abdominal aortic aneurysm repair. The patient has potential to make improvements. We instituted the following multidisciplinary therapies including, but not limited to physical, occupational, respiratory, speech, nutritional services, prosthetics and orthotics. Given his complex medical condition and risks for more complications, rehabilitation services cannot be provided at a low level of care such as shelter facility. PLAN: Admit to [facility] for inpatient therapy to include the following disciplines: A. Physical therapy to improve gait, all transfer skills and bed mobility to a modified independent level. B. Occupational therapy to improve activities of daily living. C. Case management to help with discharge planning and placement options. D. Nutrition to assist with nutritional needs. E. Rehabilitation nursing to assist in monitoring the patient's underlying medical conditions and to assist with any type of bowel or bladder management. 1. The patient's current medication and medical care will be continued. 2. Will be placed on standard fall precautions. 3. The patient's estimated length of stay approximately 7-10 days. 4. We will discuss the patient during care team staff meeting this week. I am going to go ahead and discontinue just one dose of his blood pressure medicines because he is on such a large amount. I will place it back if needed and I will HISTORY AND PHYSICAL [id number] MAYELA SOLITARIO JR follow him up in the a.m. TRANSINT:[id number] Voice Confirmation ID: [id number] DOCUMENT ID: [id number] CORNELIA notes whether there has been none or any medical/functional change since admission: - No change since preadmission screen. CORNELIA attests patient continues to be appropriate for IRF: - Continues to be appropriate. DEIRDRE CHOWDARY MD at 1900 CC: [id number] DICTATION DATE: 12/13/20 0857 ESCAPEMENT MAKER: 12/13/20 0939 ADM IN [facility] [address] [place] [address]
--- NOTE | 2020-12-16 19:18 | NUR ---
AWAKE AND ALERT. RESTING IN BED WITH NO DISTRESS NOTED. ABDOMINIAL INCISION WITH NABEEL IN TACT. NO DISTRESS NOTED. CALL LIGHT IN REACH.
[2020-12-16 21:49] VITALS: BP 155/683
--- NOTE | 2020-12-17 04:51 | NUR ---
QUIET HOURS. NO ACUTE CHANGES IN CONDITION THIS SHIFT. RESTING IN BED WITH NO DISTRESS NOTED.
[2020-12-17 07:50] LABS: BASOPHILS 0.3 % (0-2); EOSINOPHILS 1.4 % (0-7); HEMATOCRIT 29.3 % (42.0-54.0); IMMATURE GRANULOCYTES 0.3 % (0-5); LYMPHOCYTE ABS# 1.22 10x3/uL (1.32-3.57); LYMPHOCYTES 19.5 % (15-50); MCH 27.7 pg (26.0-34.0); MCHC 30.7 g/dL (31.0-37.0); MCV 90.2 fL (80.0-100.0); MEAN PLATELET VOLUME 8.9 fL (7.4-10.4); MONOCYTES 9.1 % (2-11); NEUTROPHIL ABS# 4.35 10x3/uL (1.78-5.38); NEUTROPHILS 69.4 % (40-80); PLATELET COUNT 354 10x3/uL (130-400); RBC 3.25 10x6/uL (4.20-6.10); RDW 13.1 % (11.5-14.5); WBC 6.3 10x3/uL (4.8-10.8)
[2020-12-17 08:19] LABS: CALC OSMOLALITY 279 mosm/kg (275-300); CALCIUM 8.9 mg/dL (8.5-10.1); CARBON DIOXIDE 32.7 mmol/L (21.0-32.0); CHLORIDE - SERUM 103 mmol/L (98-107); GLUCOSE 107 mg/dL (74-106); POTASSIUM - SERUM 4.2 mmol/L (3.5-5.1); SODIUM 139 mmol/L (136-145); UREA NITROGEN 19 mg/dL (7-18); eGFR NON AFRICAN AMERICAN 80 mL/min (90-120)
[2020-12-17 08:20] VITALS: BP 123/64
--- NOTE | 2020-12-17 12:00 | NUR ---
LAYING IN BED QUIETLY WATCHING TV. DENIES NEEDS OR C/O. INCISION IS HEALING WITH NO S/S INFECTION. NABEEL STILL IN ABD INCISION AND REDNESS NOTED WHERE NABEEL ARE IN SKIN BUT INCISION IS NOT RED. CALL LIGHT IN REACH.
--- NOTE | 2020-12-17 14:07 | NUR ---
NUTRITION FOLLOW UP: COMMENTS: Patient eating well with 100% eaten for the last 4 meals. DIET: AHA/ADA diet PO INTAKE: 100% x 4 meals WEIGHT: 12/13- 244 lbs BM: x 1 on 12/15 SIG MEDS: Milk of Mag, HCTZ, Zinc Sulfate, Vit C, Senokot SIG LABS: BUN-19(H) RECOMMENDATIONS: Continue AHA/ADA diet RD to follow up within 7 days
--- NOTE | 2020-12-17 18:58 | NUR ---
BEDSIDE REPORT COMPLETED. RECEIVED PT LYING IN BED EYES CLOSED RESTING. EASILY AROUSED WITH STIMULI. ALERT AND ORIENTED X4. DENIES ANY NEEDS OR PAIN. NO IV OR OXYGEN NOTED. ABDOMINAL NABEEL INTACT. NO S/S OF INFECTION NOTED. BED/CHAIR ALARM WAIVER SIGNED IN CHART. CALL LIGHT AND WATER WITHIN REACH. CPOC
[2020-12-17 20:24] VITALS: BP 142/68
--- NOTE | 2020-12-17 23:58 | NUR ---
PT LYING IN BED EYES CLOSED RESTING. RR EVEN AND UNLABORED. CONTINUES ON O2/2L VIA NC. CALL LIGHT WITHIN REACH
--- NOTE | 2020-12-18 03:02 | NUR ---
PT LYING IN BED AWAKE. DENIES ANY NEEDS OR PAIN. NO DISTRESS NOTED. CALL LIGHT WITHIN REACH
--- NOTE | 2020-12-18 05:52 | NUR ---
PT LYING IN BED EYES CLOSED RESTING. RR EVEN AND UNLABORED. NO ACUTE CHANGES IN CONDITION THIS SHIFT. CALL LIGHT WITHIN REACH.
[2020-12-18 08:55] VITALS: BP 113/58
--- NOTE | 2020-12-18 09:44 | NUR ---
LAYING IN BED RESTING QUIETLY. ABD SOFT WITH BOWEL SOUNDS PRESENT X4 QUADS. DENIES CONSTIPATION. IS INDEPENDENT WITH ADL'S. DENIES NEEDS OR SOB. CALL LIGHT IN REACH
--- NOTE | 2020-12-18 19:00 | NUR ---
BEDSIDE REPORT COMPLETE. RECEIVED PT LYING IN BED. ALERT AND ORIENTED X4. DENIES ANY NEEDS OR PAIN. NO DISTRESS NOTED. CONTINUES ON O2/2L VIA NC. ABDOMINAL INCISION WELL APPROXIMATED WITH EVERY OTHER STAPLE REMOVED TODAY WITH STERI STRIPS INTACT. CALL LIGHT AND WATER WITHIN REACH. FALL PRECAUTIONS IN PLACE. BED ALARM WAIVER ON FILE. CPOC
[2020-12-18 21:04] VITALS: BP 143/66
--- NOTE | 2020-12-18 23:31 | NUR ---
PT LYING IN BED ON LEFT SIDE EYES CLOSED RESTING. RR EVEN AND UNLABORED. CALL LIGHT WITHIN REACH
--- NOTE | 2020-12-19 03:46 | NUR ---
PT LYING IN BED SUPINE EYES CLOSED RESTING. RR EVEN AND UNLABORED. CALL LIGHT WITHIN REACH
--- NOTE | 2020-12-19 10:13 | NUR ---
LAYING IN BED WATCHING TV. DENIES INCREASED SOB OR INCREASED PAIN. INCISION TO ABD STILL INTACT WITH EYERY OTHER STAPLE OUT AND STERI STRIPS IN PLACE. APPETITE FAIR TO AVERAGE. STATES HE IS NOT REALLY HUNGRY AT ALL BUT EATS DUE TO NEEDING TO HEAL. NOT WEARING OXYGEN AT PRESENT. CALL LIGHT IN REACH. BED IN LOWEST POSITION.
[2020-12-19 10:32] VITALS: BP 105/48
--- NOTE | 2020-12-19 16:08 | NUR ---
REST OF ABD NABEEL REMOVED. STERI STRIPS PLACED OVER INCISION. NO GAPING OF INCISION OR S/S INFECTION NOTED.
[2020-12-19 19:00] VITALS: BP 120/56
--- NOTE | 2020-12-19 22:10 | NUR ---
PT RESTING IN BED, AMBULATING IN ROOM OBSERVED, PT WITH EVEN/STEADY GAIT. H.S. MEDS GIVEN EXECT HYDRALIZINE, WILL RE-CHECK VITALS AFTER OTHER MEDS HAVE HAD TIME TO BE EFFECTIVE, PT UNSURE IF HE HAS BEEN STARTED ON ANY NEW HTN MEDS SINCE ADMISSION. CALL LIGHT WITHIN REACH, WILL CONT TO MONITOR.
--- NOTE | 2020-12-20 00:14 | NUR ---
PT BP RECHECKED AND IS 115/53 WITH HR 64, WILL CONT TO HOLD HYDRALIXINE.
[2020-12-20 00:15] VITALS: BP 115/53
[2020-12-20 02:30] VITALS: BP 115/56
--- NOTE | 2020-12-20 02:33 | NUR ---
PT WOKE, CREAM APPLIED TO EXCORATED AREA TO BUTTOCKS. PT BP TAKEN, CURRENTLY 115/56 WITH HR 61.
[2020-12-20 08:09] LABS: BASOPHILS 0.2 % (0-2); HEMATOCRIT 28.1 % (42.0-54.0); HEMOGLOBIN 8.5 g/dL (13.5-17.5); LYMPHOCYTES 23.6 % (15-50); MCH 27.3 pg (26.0-34.0); MCHC 30.2 g/dL (31.0-37.0); MCV 90.4 fL (80.0-100.0); MEAN PLATELET VOLUME 8.8 fL (7.4-10.4); MONOCYTES 7.6 % (2-11); NEUTROPHIL ABS# 3.66 10x3/uL (1.78-5.38); NEUTROPHILS 66.6 % (40-80); PLATELET COUNT 320 10x3/uL (130-400); RBC 3.11 10x6/uL (4.20-6.10); WBC 5.5 10x3/uL (4.8-10.8)
[2020-12-20 08:18] LABS: ANION GAP 7.3 mmol/L (8-16); CALCIUM 8.9 mg/dL (8.5-10.1); CARBON DIOXIDE 34.9 mmol/L (21.0-32.0); CREATININE - SERUM 1.1 mg/dL (0.6-1.3); POTASSIUM - SERUM 4.2 mmol/L (3.5-5.1)
[2020-12-20 08:24] VITALS: BP 120/58
--- NOTE | 2020-12-20 15:52 | NUR ---
RESTING QUIETLY IN BED, EYES CLOSED. RESP EFFORT NON LABORED. NOT WEARING OXYGEN AT PRESENT. CALL LIGHT IN REACH. BED IN LOWEST POSITION.
[2020-12-20 19:33] VITALS: BP 127/60
--- NOTE | 2020-12-20 19:35 | NUR ---
AWAKE AND ALERT. RESTING IN BED WITH RESPRIATIONS UNLABORED. STERI-STRIPS IN PLACE TO ABDOMINAL INCISION. NO ACUTE DISTRESS NOTED.
--- NOTE | 2020-12-21 05:12 | NUR ---
QUIET HOURS. NO ACUTE CHANGES IN CONDITION THIS SHIFT. RESTING IN BED WITH NO DISTRESS NOTED. CALL LIGHT IN REACH.
[2020-12-21 07:40] VITALS: BP 104/56
--- NOTE | 2020-12-21 14:49 | NUR ---
Nutrition Re-Assessment: Diet: Diabetic PO intake: ~44% average x last 9 meals. Patient states that his appetite is "not real good." States that he is scared to eat too much because it pushes on his abdominal incision if he eats too much. He also complains that he doesn't like eating before doing therapy. He states that he does not have a diagnosis of diabetes and would like a regular diet. Last BM: 12/20/20 Wt: 244# (12/13/20) Meds noted: HCTZ, senokot Labs reviewed Estimated nutrition needs: 5177-8983 lanre (25-30 IBW), 90-110gms protein (1-1.2), 2475-2970mL fluid (or per MD) Nutrition diagnosis: Inadequate energy intake r/t decreased appetite/inadequate oral intake AEB PO intake only ~44% average x last 9 meals. Nutrition goals: -PO intake will increase to >75% meals -Meet fluid needs -Stable weight DHS Recommendations/Interventions: -Will change diet to Regular 2/2 patient stating no PMHx of DM and blood glucose WNL. -Will continue to honor food preferences. -RD will follow-up within 7 days. Recommendations/Interventions: -Will change diet to Regular 2/2 blood glucose WNL and patient states that he does not have DM dx. -Will continue to honor food preferences. -Will continue to monitor PO intake and wt trend. -RD will follow-up 12/27/20.
[2020-12-21 20:02] VITALS: BP 101/47
--- NOTE | 2020-12-22 02:15 | NUR ---
RECIEVED PATIENT IN BED ALERT AND ORIENTED, FAMILY AT BEDSIDE, BEDRAILS UP X 2, CALL LIGHT IN REACH, BED IN LOW LOCKED POSITION, , ABD. INCISION CLEAN AND DRY, STERI STRIPS IN PLACE, NO DISTRESS NOTED.
[2020-12-22 06:51] LABS: ANION GAP 6.2 mmol/L (8-16); CARBON DIOXIDE 34.9 mmol/L (21.0-32.0); CREATININE - SERUM 1.1 mg/dL (0.6-1.3); POTASSIUM - SERUM 4.1 mmol/L (3.5-5.1)
[2020-12-22 06:59] LABS: BASOPHILS 0.2 % (0-2); EOSINOPHILS 2.2 % (0-7); HEMATOCRIT 28.5 % (42.0-54.0); HEMOGLOBIN 8.7 g/dL (13.5-17.5); IMMATURE GRANULOCYTES 0.2 % (0-5); LYMPHOCYTE ABS# 1.19 10x3/uL (1.32-3.57); LYMPHOCYTES 25.8 % (15-50); MCH 27.2 pg (26.0-34.0); MCHC 30.5 g/dL (31.0-37.0); MCV 89.1 fL (80.0-100.0); MEAN PLATELET VOLUME 9.1 fL (7.4-10.4); MONOCYTES 7.8 % (2-11); NEUTROPHIL ABS# 2.95 10x3/uL (1.78-5.38); NEUTROPHILS 63.8 % (40-80); PLATELET COUNT 280 10x3/uL (130-400); RDW 12.8 % (11.5-14.5); WBC 4.6 10x3/uL (4.8-10.8)
[2020-12-22 08:05] VITALS: BP 117/58
--- NOTE | 2020-12-22 16:28 | NUR ---
CARE TEAM MEETING: PATIENT IS DOING WELL IN THERAPY AND WILL DC HOME ON 12/24/20. WILL CONTINUE TO FOLLOW WITH PATIENT.
--- NOTE | 2020-12-22 18:58 | NUR ---
BEDSIDE REPORT COMPLETE. RECEIVED PT SITTING UP IN BED. ALERT AND ORIENTED X4. DENIES ANY NEEDS OR PAIN. NO DISTRESS NOTED. CONTINUES ON O2/2L VIA NC. ABDOMINAL INCISION WELL APPROXIMATED. STERI STRIPS IN INTACT. NO DRAINAGE NOTED. INCISION NNEKA. CALL LIGHT AND WATER WITHIN REACH. BED/CHAIR ALARM WAIVER SIGNED IN CHART. CPOC
[2020-12-22 19:30] VITALS: BP 124/52
[2020-12-22 20:40] VITALS: BP 124/52
--- NOTE | 2020-12-23 00:39 | NUR ---
PT LYING IN BED ON RIGHT SIDE EYES CLOSED RESTING. RR EVEN AND UNLABORED. CONTINUES ON O2/2L VIA NC. CALL LIGHT WITHIN REACH
--- NOTE | 2020-12-23 04:50 | NUR ---
PT LYING IN BED ON LEFT SIDE EYES CLOSED RESTING. RR EVEN AND UNLABORED. NO ACUTE CHANGES IN CONDITION THIS SHIFT. CALL LIGHT WITHIN REACH
[2020-12-23 07:56] VITALS: BP 116/60
--- NOTE | 2020-12-23 09:50 | NUR ---
PT RESTING IN BED WITH EYES OPEN CALL LIGHT IN REACH WILL MONITER
--- NOTE | 2020-12-23 18:26 | NUR ---
PT RESTING IN BED WITH EYES OPEN CALL LIGHT IN REACH NO PROBLEMS WILL MONITER
--- NOTE | 2020-12-23 18:27 | NUR ---
PT RESTING IN BED WITH EYES OPEN CALL LIGHT IN REACH NO PROBLEMS WILL MONITER
--- NOTE | 2020-12-23 18:52 | NUR ---
BEDSIDE REPORT COMPLETE. RECEIVED PT SITTING UP ON SIDE OF BED. ALERT AND ORIENTED X4. CONTINUES ON O2/2L VIA NC. DENIES ANY NEEDS OR PAIN. NO DISTRESS NOTED. CALL LIGHT AND WATER WITHIN REACH. FALL PRECAUTIONS IN PLACE. CPOC
[2020-12-23 21:29] VITALS: BP 148/66
--- NOTE | 2020-12-24 01:56 | NUR ---
PT LYING IN BED ON RIGHT SIDE EYES CLOSED RESTING. HOB ELEVATED. RR EVEN AND UNLABORED. CONTINUES ON O2/2L VIA NC. CALL LIGHT WITHIN REACH
--- NOTE | 2020-12-24 07:31 | NUR ---
PT SITTING UP IN BED. DENIES ANY NEEDS OR PAIN. NO DISTRESS NOTED. CALL LIGHT WITHIN REACH.
[2020-12-24 07:48] VITALS: BP 122/71
--- NOTE | 2020-12-24 08:00 | NUR ---
PT RESTING IN BED EATING BREAKFAST CALL LIGHT IN REACH WILL MONITER
[2020-12-24 08:09] LABS: BASOPHILS 0.2 % (0-2); EOSINOPHILS 2.8 % (0-7); HEMATOCRIT 32.1 % (42.0-54.0); HEMOGLOBIN 9.9 g/dL (13.5-17.5); IMMATURE GRANULOCYTES 0.2 % (0-5); LYMPHOCYTE ABS# 1.06 10x3/uL (1.32-3.57); LYMPHOCYTES 22.8 % (15-50); MCH 27.6 pg (26.0-34.0); MCHC 30.8 g/dL (31.0-37.0); MCV 89.4 fL (80.0-100.0); MEAN PLATELET VOLUME 9.1 fL (7.4-10.4); MONOCYTES 7.7 % (2-11); NEUTROPHIL ABS# 3.08 10x3/uL (1.78-5.38); NEUTROPHILS 66.3 % (40-80); PLATELET COUNT 269 10x3/uL (130-400); RBC 3.59 10x6/uL (4.20-6.10); RDW 12.9 % (11.5-14.5); WBC 4.7 10x3/uL (4.8-10.8)
[2020-12-24 08:32] LABS: CALC OSMOLALITY 282 mosm/kg (275-300); CALCIUM 9.3 mg/dL (8.5-10.1); CARBON DIOXIDE 33.3 mmol/L (21.0-32.0); CHLORIDE - SERUM 100 mmol/L (98-107); GLUCOSE 109 mg/dL (74-106); POTASSIUM - SERUM 4.2 mmol/L (3.5-5.1); SODIUM 141 mmol/L (136-145); UREA NITROGEN 16 mg/dL (7-18); eGFR NON AFRICAN AMERICAN 80 mL/min (90-120)
--- NOTE | 2020-12-24 11:52 | NUR ---
PATIENT DISCHARGING HOME TODAY WITH FAMILY.[facility] WILL PROVIDE THERAPY AT HOME.[facility] HAS DELIVERED O2 AND A ROLLING WALKER TO PATIENT. DR LAU OFFICE WILL CALL PATIENT WITH AN APPOINTMENT, DR. FONG OFFICE WILL CALL PATIENT WITH AN APPOINTMENT FOR A CTA AND FOLLOW UO WITH PHYSICIAN. NO COMPARE DATA REVIEWED. JAGDEEP SIGNED, IMM SERVED AND EXPLAINED, ONE GIVEN TO PATIENT AND ONE FILED IN CHART. DC ISNTRUCTIONS HAVE BEEN FAXED TO PCP, [facility] , [facility] , AUTH. # [id number] AND REVIEWED WITH PATIENT.
--- NOTE | 2020-12-24 12:20 | NUR ---
PT DISCHARGED TO HOME VIA WHEELCHAIR WITH FAMILY AND HOME O2. DISCHARGE SUMMARY AND MEDS REVIEWED WITH PT. ALL MEDS CALLED TO [facility] AND . PT TOLERATED DISCHARGE WELL NO QUESTIONS OR CONCERNS.
== END 2020-12-24 13:47 | disposition home health service (06) | DRG 300 ==
LOC: D.REHAB 17:44
PROVIDERS: ADMIT Emergency Medicine; ATTEND Emergency Medicine
DX: I71.4 Abdominal aortic aneurysm, without rupture (principal); D62 Acute posthemorrhagic anemia; N17.9 Acute kidney failure, unspecified; I73.9 Peripheral vascular disease, unspecified; I10 Essential (primary) hypertension; J44.9 Chronic obstructive pulmonary disease, unspecified; E87.8 Other disorders of electrolyte and fluid balance, not elsewhere classified; E66.9 Obesity, unspecified; Z86.73 Personal history of transient ischemic attack (TIA), and cerebral infarction without residual deficits; R53.81 Other malaise; R26.2 Difficulty in walking, not elsewhere classified; E78.5 Hyperlipidemia, unspecified; R53.1 Weakness; Z68.29 Body mass index [BMI] 29.0-29.9, adult